=== PATIENT | female | born 1940 | race Caucasian/White ===

== ENCOUNTER 2020-03-20 15:35 | Inpatient (IN) ==
[2020-03-20] MEDS ORDERED: IOPAMIDOL 100 ML BOTTLE IV ONE (15:36)
[2020-03-20] MEDS ORDERED: ALTEPLASE 100 MG/100 ML VIAL IV ONE (15:48)
--- NOTE | 2020-03-20 15:50 | Emergency Department Note ---
Neuro HPI General Chief Complaint: Stroke Symptoms Stated Complaint: neuro symptoms, r weaknes Time Seen by Provider: 03/20/20 15:44 Mode of arrival: ambulatory Limitations: physical limitation History of Present Illness HPI Narrative: Narrative: Initial information obtained from EMS with patient reporting to them right-sided weakness last night but it went away. She went to bed fine and awoke this morning fine but around a little bit before 3 PM noted some weakness to her right arm and skilled nursing facility counselor and to her right leg. She had troubles dialing 911 so called her sister who called 911 for her. Patient lives alone in a private apartment. She was able to stand with assistance but was found sitting by EMS. She usually is able to stand by herself. She was unable to walk very far without significant amount of assistance and again it seemed to be that she was weak in her right lower extremity. And this is abnormal for her. Her speech seemed to be slow as if she was having difficulty formulating her words which is also abnormal for her. They felt that they detected some mild decrease in her skilled nursing facility counselor strength but no arm drift. Blood sugar was 89. Related Data Home Medications Medication Instructions Recorded Confirmed cetirizine 10 mg capsule 10 mg PO QDAY 09/18/16 03/20/20 fexofenadine 180 mg tablet 180 mg PO HS 09/18/16 03/20/20 calcium carbonate 600 mg calcium 600 mg PO HS 01/07/19 03/20/20 (1,500 mg) tablet cholecalciferol (vitamin D3) 25 2,000 unit PO QDAY 01/07/19 03/20/20 mcg (1,000 unit) capsule cpap machine #1 ea 01/07/19 11/21/19 diphenhydramine HCl 25 mg capsule 50 mg PO QHS PRN 01/07/19 03/20/20 tramadol 50 mg tablet 50 mg PO Q4H PRN tab 07/15/19 03/20/20 vitamin B complex 1 tab PO .unknown tab 07/15/19 03/20/20 naproxen 500 mg tablet 500 mg PO BID 10/20/19 03/20/20 doxylamine succinate 25 mg tablet 25 mg PO QHS PRN 11/21/19 03/20/20 melatonin 10 mg tablet 10 mg PO QHS tab 11/21/19 03/20/20 aspirin 81 mg PO QDAY 03/20/20 03/20/20 fluoxetine 20 mg PO QDAY 03/20/20 03/20/20 Previous Rx's Medication Instructions Recorded losartan 100 mg tablet 50 mg PO QDAY #90 tab 12/25/18 pantoprazole 40 mg tablet,delayed 40 mg PO QDAY #90 tab 03/09/20 release spironolactone 25 mg tablet 25 mg PO QDAY #90 tab 03/09/20 Allergies Allergy/AdvReac Type Severity Reaction Status Date / Time adhesive tape Allergy Mild Agitated Verified 11/21/19 09:16 mold Allergy Unknown UNKNOWN Verified 11/21/19 09:16 hydrocodone AdvReac Severe feels like Verified 11/21/19 09:16 things crawl on her latex AdvReac Intermediate rash Verified 11/21/19 09:16 Codene Allergy Unknown "felt like Uncoded 11/21/19 09:16 things where crawling on her" HAY FEVER Allergy Unknown UNKNOWN Uncoded 11/21/19 09:16 pain medication AdvReac Intermediate nerve Uncoded 11/21/19 09:16 ending exposed per patient and "creepy crawlies." Review of Systems ROS ROS Narrative: Narrative: Patient denied recent fevers chills sweats chest pain shortness of breath nausea vomiting diarrhea constipation dysuria. She did feel some lightheaded and dizzy. No specific headache. [facility] Narrative Patient History Narrative: Narrative: Medical/Surgical/Family History All Active Problems (Updated 03/20/20 @ 22:07 by Dar Allen DO) Acute CVA (cerebrovascular accident) (Acute) Hemiplegia affecting right dominant side (Acute) Difficulty with speech (Acute) Received intravenous tissue plasminogen activator (tPA) in emergency department (Acute) Hot flashes (Acute) History of surgery (Chronic) Radiculopathy, lumbar region (Chronic) Radiculopathy, lumbosacral region (Chronic) Depression (Chronic) Tobacco use (Chronic) Anxiety disorder (Chronic) Hypertension (Chronic) Hypothyroidism, unspecified (Chronic) History of breast cancer (Chronic) Chronic pain (Chronic) Low back pain (Chronic) Spondylosis without myelopathy or radiculopathy, 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) GERD (gastroesophageal reflux disease) (Chronic) Otalgia, right ear (Acute) Urinary tract infection (Acute) Insomnia (Chronic) Hypokalemia (Acute) Sleep apnea (Chronic) Chronic sinusitis (Chronic) Peptic ulcer disease (Chronic) Kidney stones (Chronic) Essential hypertension (Chronic) Bronchitis (Chronic) Malignant neoplasm of breast (Chronic) Arthritis (Chronic) Medical History (Updated 03/20/20 @ 22:07 by Dar Allen DO) Anxiety disorder (Chronic) Arthritis (Chronic) Bronchitis (Chronic) Chronic pain (Chronic) Chronic SI joint pain (Chronic) Chronic sinusitis (Chronic) Depression (Chronic) Essential hypertension (Chronic) GERD (gastroesophageal reflux disease) (Chronic) History of breast cancer (Chronic) History of radiation therapy (Resolved) 2010 History of tobacco use (Resolved) Hypertension (Chronic) Hypertensive urgency (Resolved) Hypokalemia (Acute) Hypothyroidism, unspecified (Chronic) Insomnia (Chronic) Kidney stones (Chronic) 2007 Low back pain (Chronic) Malignant neoplasm of breast (Chronic) 2010 Medicare annual wellness visit, initial (Inactive) Non-cardiac chest pain (Resolved) Peptic ulcer disease (Chronic) 1964 Pleuritic chest pain (Resolved) Radiculopathy, lumbar region (Chronic) Radiculopathy, lumbosacral region (Chronic) Sleep apnea (Chronic) 2006 Spondylosis without myelopathy or radiculopathy, lumbar region (Chronic) Tobacco use (Chronic) Urolithiasis (Inactive) Surgical History (Updated 10/20/19 @ 15:02 by Katy Paige) H/O colonoscopy (Resolved) 06/18/2019 - Dr. Rutledge H/O dilation and curettage (Resolved) H/O excision of mass (Resolved) Lump removed H/O knee surgery (Resolved 06/26/11) H/O nasal septoplasty (Resolved 06/11/13) H/O shoulder surgery (Resolved) Left History of surgery (Acute) SI Joint Injection, bilat w/o sed 06/19/19 RFTC Bilat L3-S1 w/sed 04/21/19 MBB #2 Bilat L3-S1 w/o sed 03/13/19 MBB #1 Bilat L2-S1 w/sed 02/17/19 History of surgery (Chronic) TF ELDA #3 Lt. L3-4, L4-5 w/sed 07/17/2019 Discogram L3-4, L4-5 w/sed 06/25/2019 TF ELDA #2 Lt L4-5, L5-S1 w/sed 04/21/19 LESI #1 Lt. L4-5 w/sed 03/31/2019 Hx of tonsillectomy (Resolved) 05/1949 Status post right breast lumpectomy (Resolved 10/11/10) Status post wrist surgery (Resolved) Left Social History Smoking Status: Former smoker Alcohol Intake Frequency: does not drink Substance Use: does not use Exam Narrative Narrative: Narrative: General Limitations: physical limitation General appearance: Present alert, in no apparent distress and nontoxic Head Head: Present atraumatic and normocephalic Eye Eye: Present normal appearance, PERRL and EOMI; Absent scleral icterus and conjunctival injection ENT ENT: Present normal oropharynx, mucous membranes moist and other (Muscles of facial expression symmetric including with smile and with eye closure.) Neck Neck: Present trachea midline; Absent tenderness and lymphadenopathy Chest Chest: Present symmetric chest wall rise Respiratory Respiratory: Present normal lung sounds bilaterally; Absent respiratory distress, wheezes, stridor, accessory muscle use and prolonged expiratory phase Cardiovascular Cardiovascular: Present regular rate and normal rhythm; Absent systolic murmur and diastolic murmur Adbominal Abdominal: Present soft; Absent distention, tenderness, guarding, rebound, rigidity, organomegaly and mass Extremities Extremities: Absent pedal edema, pretibial edema and calf tenderness Neurological Neurological: Present alert and oriented X3 Expanded Neurological Patient oriented to: Present person, place and time Speech: Present other (Mild slowness in forming some of her words sounding a little bit on the slurred type. Content was normal and intelligent.) CRANIAL NERVES: EOM function (II, III, IV, ): Normal, facial sensation (V): Normal, facial palsy (VII): Normal and tongue deviation (XII): Normal CEREBELLAR FUNCTION: finger to nose: Abnormal Right (Mildly slowed and ataxic of the right upper extremity.) and heel to strauss: Abnormal Right (Mild to moderately slowed and required more attention to make it happen compared to the left.) Motor strength - LUE: 4/5 Motor strength - RUE: 3/5 (Difficult to detect truly if it was abnormal but movements were abnormal.) Motor strength - LLE: 4/5 Motor strength - RLE: 3/5 (Only very subtle difference from the right with hip flexion and extension.) SENSORY EXAM UPPER EXTREMITY: Normal: light touch and pin prick SENSORY EXAM LOWER EXTREMITY: Normal: light touch Coma Scale Eye Opening: Spontaneous Coma Scale Motor Response: Obeys Commands Coma Scale Verbal Response: Oriented Coma Scale Total: 15 Psychiatric Psychiatric: Present normal affect, normal mood and pleasant; Absent agitated, anxious and serious Skin Skin: Present warm (WNL) and dry; Absent cyanosis and pallor Course Vital Signs Vital signs: Vital Signs Temperature 97.1 F 03/20/20 15:35 Pulse Rate 88 03/20/20 15:35 Respiratory Rate 16 03/20/20 15:35 Blood Pressure 183/106 03/20/20 15:35 Pulse Oximetry (%) 98 03/20/20 15:35 Temperature 97.3 F 03/20/20 20:12 Pulse Rate 66 03/20/20 21:31 Respiratory Rate 19 03/20/20 21:31 Blood Pressure 183/107 03/20/20 21:31 Pulse Oximetry (%) 97 03/20/20 21:31 MDM MDM Narrative Medical decision making narrative: 3:35 PM - interviewed and examined but initially patient was taken directly back to CT scan while I spoke with the EMS to collect the history. Later patient confirmed much of this history. No previous history of stroke or heart attack/heart disease. Does have a prior history of breast cancer. She has not been on anticoagulants except for a low- dose aspirin daily. No recent surgeries. No bleeding problems or concerns. 3:46 PM - I spoke with Dr. Rodriguez, telestroke neurologist, who upon hearing patient's presentation symptoms asked to be connected telestroke video monitor which he did at 3:54 PM. He reviewed with the patient her CT scan that was negative for bleeding. Her INR was 1.0. Spoke of her bleeding risk with the alteplase/TPA and rare allergies but in the end recommended going forward with this. Her blood pressures were 187 and 199 systolic. He recommended going ahead with nicardipine drip this is 3:57 PM) with a goal to get her blood pressures under 180/105 and once that is achieved to go ahead with the bolus injection and then obtained a CT angiogram and then after this to continue with the infusion. Goal for the blood pressure 140-180. 4:15 PM - spoke with patient's son, Jorge and updated him. (Patient gave permission). 4:55 PM approximately - patient better if not resolved. Back from CT angiogram quite a bit better. Dr. Rodriguez called back to find out how she was doing and was agreeable with management and. CT angiogram of the head and neck: 1. Mild calcified atherosclerotic plaque in the aortic arch. Minimal calcified plaque in the proximal right internal carotid artery 2. No stenosis. No ulcerative plaque 3. No detectable intracranial branch occlusion. Negative CTA 4. Multilevel degenerative disc disease in the cervical spine 5:19 PM - patient's NIH score went from the 7 to 0. Her alteplase drip was completed. CODE STATUS was that she does not want resuscitation or intubation. 5:23 PM - White count normal. Low-grade anemia at 11.9 on hemoglobin but hematocrit normal at 37.9. Electrolytes unremarkable as are liver function test. 6:32 PM - patient indicates that she does not want to leave this facility even if there were specialist to give her better care elsewhere. She does not want resuscitation or intubation. Because of a stroke with reversal, standard of care is 24-hour observation with additional stroke work-up with MRI of the brain, echocardiogram, and monitoring; I will speak with the hospitalist regarding this. I next spoke with hospitalist, Dr. Bart Burgos, who agreeable to admission if the stroke neurologist felt that this was appropriate. 7:29 PM - I spoke with Dr. Murillo, telestroke neurologist, who that patient must have monitoring protocols clued neurochecks every 15 minutes orders and then every 30 minutes and then every hour with a goal of blood pressure also less than 180/105 change in status in an acute urgent CT scan of the head. An MRI around 24 hours would be recommended, echocardiogram and monitoring. I discussed the circumstances with patient. She does not want to leave this facility even if there were advantages, or disadvantages of not having specialist etc. locally even at risk of life or limb. She is willing to stay however. I again spoke with Dr. Burgos, hospitalist, who is agreeable to accept care of this patient. I reviewed Dr. Murillo's recommendations. Lab Data Result diagrams: 03/20/20 15:58 03/20/20 15:57 Labs: Lab Results 03/20/20 03/20/20 03/20/20 Range/Units 15:57 15:58 15:58 WBC 5.7 (4.5-11.0) K/mcL RBC 4.16 (4.00-5.20) M/mcL Hgb 11.9 L (12.0-15.0) g/dL Hct 37.9 (36.0-48.0) % MCV 91.1 (80.0-100.0) fL MCH 28.6 (26.0-34.0) pg MCHC 31.4 (31.0-36.0) g/dL RDW 14.6 H (11.5-14.5) % Plt Count 266 (140-440) K/mcL MPV 10.7 H (7.4-10.4) fL Neut % (Auto) 63.3 (38.0-78.0) % Lymph % (Auto) 23.6 (15.0-49.0) % [place] % (Auto) 8.3 (1.0-12.0) % Eos % (Auto) 3.9 (0.0-7.0) % Baso % (Auto) 0.9 (0.0-2.0) % Lymph # (Auto) 1.34 L (1.50-4.80) K/mcL [place] # (Auto) 0.47 (0.10-0.90) K/mcL Eos # (Auto) 0.22 (0.00-0.70) K/mcL Baso # (Auto) 0.05 (0.00-0.20) K/mcL Absolute Neutrophils 3.61 (1.80-8.00) K/mcL POC PT 11.6 L (11.9-14.5) sec POC INR 1.0 (0.8-1.2) Sodium 137 (133-145) mmol/L Potassium 3.9 (3.3-5.1) mmol/L Chloride 98 (96-108) mmol/L Carbon Dioxide 24 (22-30) mmol/L Anion Gap 15.0 (8.0-16.0) BUN 12 (8-23) mg/dL Creatinine 0.9 (0.6-1.1) mg/dL POC Creatinine 0.8 (0.6-1.2) mg/dL GFR Calculation 61 Glucose 94 (70-105) mg/dL Calcium 9.0 (8.6-10.4) mg/dL Total Bilirubin 0.2 (0.1-1.0) mg/dL AST 16 (<32) U/L ALT 10 (<40) U/L Alkaline Phosphatase 68 (39-117) U/L Troponin T (<0.03) ng/mL Total Protein 6.9 (5.9-8.4) gm/dL Albumin 4.2 (3.2-5.2) gm/dL Globulin 2.7 (2.2-3.7) gm/dL Albumin/Globulin Ratio 1.6 (1.0-2.3) Urine Color Urine Appearance (Clear) Urine pH (5.0-9.0) Ur Specific [place] (1.000-1.035) Urine Protein (Negative) mg/dL Urine Glucose (UA) (Negative) mg/dL Urine Ketones (Negative) mg/dL Urine Occult Blood (Negative) mg/dL Urine Nitrate (Negative) Urine Bilirubin (Negative) mg/dL Urine Urobilinogen mg/dL Ur Leukocyte Esterase (Negative) /ug Urine RBC (0-1) /hpf Urine WBC (0-4) /hpf Ur Squamous Epith Cells (0-4) /hpf Urine Bacteria (0) /hpf Urine Mucus (None) /hpf Ur Culture Indicated? SARS-CoV-2 (PCR) (Negative) 03/20/20 03/20/20 03/20/20 Range/Units 15:58 17:38 18:34 WBC (4.5-11.0) K/mcL RBC (4.00-5.20) M/mcL Hgb (12.0-15.0) g/dL Hct (36.0-48.0) % MCV (80.0-100.0) fL MCH (26.0-34.0) pg MCHC (31.0-36.0) g/dL RDW (11.5-14.5) % Plt Count (140-440) K/mcL MPV (7.4-10.4) fL Neut % (Auto) (38.0-78.0) % Lymph % (Auto) (15.0-49.0) % [place] % (Auto) (1.0-12.0) % Eos % (Auto) (0.0-7.0) % Baso % (Auto) (0.0-2.0) % Lymph # (Auto) (1.50-4.80) K/mcL [place] # (Auto) (0.10-0.90) K/mcL Eos # (Auto) (0.00-0.70) K/mcL Baso # (Auto) (0.00-0.20) K/mcL Absolute Neutrophils (1.80-8.00) K/mcL POC PT (11.9-14.5) sec POC INR (0.8-1.2) Sodium (133-145) mmol/L Potassium (3.3-5.1) mmol/L Chloride (96-108) mmol/L Carbon Dioxide (22-30) mmol/L Anion Gap (8.0-16.0) BUN (8-23) mg/dL Creatinine (0.6-1.1) mg/dL POC Creatinine (0.6-1.2) mg/dL GFR Calculation Glucose (70-105) mg/dL Calcium (8.6-10.4) mg/dL Total Bilirubin (0.1-1.0) mg/dL AST (<32) U/L ALT (<40) U/L Alkaline Phosphatase (39-117) U/L Troponin T < 0.01 (<0.03) ng/mL Total Protein (5.9-8.4) gm/dL Albumin (3.2-5.2) gm/dL Globulin (2.2-3.7) gm/dL Albumin/Globulin Ratio (1.0-2.3) Urine Color Yellow Urine Appearance Clear (Clear) Urine pH 6.0 (5.0-9.0) Ur Specific [place] 1.013 (1.000-1.035) Urine Protein Negative (Negative) mg/dL Urine Glucose (UA) Negative (Negative) mg/dL Urine Ketones Negative (Negative) mg/dL Urine Occult Blood 0.03 (Negative) mg/dL Urine Nitrate Negative (Negative) Urine Bilirubin Negative (Negative) mg/dL Urine Urobilinogen Negative mg/dL Ur Leukocyte Esterase 25 A (Negative) /ug Urine RBC 2 H (0-1) /hpf Urine WBC 11 H (0-4) /hpf Ur Squamous Epith Cells < 1 (0-4) /hpf Urine Bacteria None (0) /hpf Urine Mucus Few A (None) /hpf Ur Culture Indicated? yes SARS-CoV-2 (PCR) Negative (Negative) Discharge Plan Patient/Caregiver Discharge Instructions Pt seen by HORTICULTURE SUPERVISOR/PA only: No Clinical Impression: Acute CVA (cerebrovascular accident), Hemiplegia affecting right dominant side, Difficulty with speech, Received intravenous tissue plasminogen activator (tPA) in emergency department Patient Disposition: Xfer As Inpt ([facility]) Condition: Fair Follow up with: Katy Baird PA-C [Primary Care Provider] - Prescriptions: No Action spironolactone 25 mg tablet 25 mg PO QDAY Qty: 90 RF: 0 pantoprazole 40 mg tablet,delayed release (DR/EC) 40 mg PO QDAY Qty: 90 RF: 0 tramadol 50 mg tablet 50 mg PO Q4H PRN (Reason: Back Pain) RF: 0 vitamin B complex [B Complex-Vitamin B12] Tablet 1 tab PO .unknown RF: 0 fexofenadine [Lisha Allergy] 180 mg tablet 180 mg PO HS RF: 0 cetirizine [Zyrtec] 10 mg capsule 10 mg PO QDAY RF: 0 losartan 100 mg tablet 50 mg PO QDAY Qty: 90 RF: 3 naproxen 500 mg tablet 500 mg PO BID RF: 0 melatonin 10 mg tablet 10 mg PO QHS RF: 0 Unisom (doxylamine) 25 mg tablet 25 mg PO QHS PRN (Reason: Sleep) RF: 0 cholecalciferol (vitamin D3) 1,000 unit capsule 2,000 unit PO QDAY RF: 0 calcium carbonate [Calcium 600] 600 mg calcium (1,500 mg) tablet 600 mg PO HS RF: 0 diphenhydramine HCl [Benadryl] 25 mg capsule 50 mg PO QHS PRN (Reason: Sleep) RF: 0 (DME) cpap machine Qty: 1 RF: 0 fluoxetine 20 mg capsule 20 mg PO QDAY RF: 0 aspirin 81 mg Tablet,Chewable 81 mg PO QDAY RF: 0
--- NOTE | 2020-03-20 15:51 | Cat Scan Report ---
INDICATION: Neuro Deficit/acute stroke COMPARISON: Previous MRI scan dated 06/18/2015 TECHNIQUE: Axial noncontrast-enhanced images through the brain. Sagittally and coronally reformatted images. FINDINGS: Cerebral hemispheres:Negative. No intra-axial abnormality. No intra-axial hematoma. No localized mass effect. Brain volume is within normal limits. No hydrocephalus Brainstem and cerebellum:No intra-axial abnormality Extra-axial:No acute hemorrhage. No subdural or epidural hematoma. No subarachnoid hemorrhage. Basilar cisterns are normal Calvarial:No calvarial fracture. No lytic lesion Temporal bones are negative. No destructive lesions Soft tissue, orbits, sinuses:Orbits and visualized facial soft tissues and paranasal sinuses are negative IMPRESSION: Negative noncontrast enhanced brain CT scan The exam was performed using radiation dose optimization techniques including, but not limited to, automated exposure control, adjustment of the mA and/or kV according to patient size and use of iterative reconstruction technique. Interpreted and Authenticated by: Shankar Long 03/20/20
[2020-03-20] MEDS ORDERED: niCARdipine 25 MG in 0.9 % SODIUM CHLORIDE 240 ML IV SCH (16:00)
[2020-03-20 16:22] LABS: POC Creatinine 0.8 mg/dL (0.6-1.2)
[2020-03-20 16:47] LABS: Basophils # (Auto) 0.05 K/mcL (0.00-0.20); Basophils % (Auto) 0.9 % (0.0-2.0); Eosinophils # (Auto) 0.22 K/mcL (0.00-0.70); Eosinophils % (Auto) 3.9 % (0.0-7.0); Hematocrit 37.9 % (36.0-48.0); Hemoglobin 11.9 g/dL (12.0-15.0); Lymphocytes # (Auto) 1.34 K/mcL (1.50-4.80); Lymphocytes % (Auto) 23.6 % (15.0-49.0); Mean Cell Volume 91.1 fL (80.0-100.0); Mean Corpuscular HGB Conc 31.4 g/dL (31.0-36.0); Mean Platelet Volume 10.7 fL (7.4-10.4); Monocytes # (Auto) 0.47 K/mcL (0.10-0.90); Monocytes % (Auto) 8.3 % (1.0-12.0); Neutrophils % (Auto) 63.3 % (38.0-78.0); Platelet Count 266 K/mcL (140-440); RBC 4.16 M/mcL (4.00-5.20); Red Cell Distribution Width 14.6 % (11.5-14.5); WBC 5.7 K/mcL (4.5-11.0)
[2020-03-20 16:55] LABS: ALT/SGPT 10 U/L (<40); AST/SGOT 16 U/L (<32); Albumin 4.2 gm/dL (3.2-5.2); Albumin/Globulin Ratio 1.6 (1.0-2.3); Alkaline Phosphatase 68 U/L (39-117); Bilirubin,Total 0.2 mg/dL (0.1-1.0); Blood Urea Nitrogen 12 mg/dL (8-23); Carbon Dioxide 24 mmol/L (22-30); Chloride 98 mmol/L (96-108); Globulin 2.7 gm/dL (2.2-3.7); Glomerular Filtration Rate 61; Glucose 94 mg/dL (70-105)
--- NOTE | 2020-03-20 16:58 | Cat Scan Report ---
INDICATION: stroke symptoms COMPARISON: Brain CT scan dated 03/20/2020 TECHNIQUE: Axial images were obtained through the upper chest, neck, and head during arterial phase. MIP and CPR reformatted images. 80ml Isovue 370 injected intravenously. FINDINGS: AORTIC ARCH:Calcified atherosclerotic plaque. Origins of the left subclavian artery, left vertebral artery, left common carotid artery, innominate artery, right common carotid artery, right subclavian artery, right vertebral artery are negative. No origin stenosis. CAROTID ARTERIES:Right: Right common carotid artery is negative. No stenosis or occlusion. Minimal calcified plaque at the origin of the right internal carotid artery. No significant stenosis or evidence for ulceration. Right internal carotid artery is otherwise negative. No stenosis or occlusion. No fibromuscular dysplasia or dissection. Left: Left common carotid artery is negative. No stenosis or occlusion No calcified or noncalcified plaque at the origin of left internal carotid artery. No significant stenosis. No evidence for ulceration. Left internal carotid artery is otherwise negative. There is no stenosis or occlusion. No dissection or evidence for fibromuscular dysplasia VERTEBRAL ARTERIES:Vertebral arteries are patent without stenosis or occlusion [place]:[Cavernous and supraclinoid internal carotid arteries are negative. No significant stenosis or occlusion. M1 segments of the middle cerebral arteries and A1 segments of the anterior cerebral arteries are negative. Intracranial vertebral arteries and basilar artery are negative. Posterior cerebral arteries and superior cerebellar arteries are negative] INTRACRANIAL CIRCULATION:No intracranial branch occlusion. No arteriovenous malformation or aneurysm No dural sinus occlusion UPPER CHEST:No pulmonary parenchymal mass or focal infiltrate. Superior mediastinum is negative NECK:No solid or cystic soft tissue mass. No pathologic lymphadenopathy.. Multilevel degenerative disc disease. Severe degenerative disc disease at C4-C5, C5-C6 and C6-C7, C7-T1. No fracture. BRAIN:No acute intracranial hemorrhage. No focal attenuation abnormalities or pathologic contrast enhancement. IMPRESSION: 1. Mild calcified atherosclerotic plaque in the aortic arch. Minimal calcified plaque in the proximal right internal carotid artery 2. No stenosis. No ulcerative plaque 3. No detectable intracranial branch occlusion. Negative CTA 4. Multilevel degenerative disc disease in the cervical spine The exam was performed using radiation dose optimization techniques including, but not limited to, automated exposure control, adjustment of the mA and/or kV according to patient size and use of iterative reconstruction technique. Interpreted and Authenticated by: Shankar Long 03/20/20
[2020-03-20 19:00] LABS: Appearance,Urine CLEAR (Clear); Bilirubin,Urine Negative (Negative); Color,Urine YELLOW; Culture Indicated,Urine yes; Glucose,Urine (UA) Negative (Negative); Ketones,Urine Negative (Negative); Leukocyte Esterase,Urine 25 /ug (Negative); Mucus,Urine FEW /hpf; Nitrate,Urine Negative (Negative); Protein,Urine Negative (Negative); Specific Gravity,Urine 1.013 (1.000-1.035); Urine Blood 0.03 mg/dL (Negative); Urine RBC 2 /hpf (0-1); Urine Squamous Epithelial Cell < 1 /hpf (0-4); Urine WBC 11 /hpf (0-4); Urobilinogen,Urine Negative
[2020-03-20 21:05] LABS: POC Pro Time 11.6 sec (11.9-14.5)
[2020-03-20] MEDS ORDERED: LABETALOL 5 MG/ML ML IV PRN ×2 (21:45→22:25)
[2020-03-20] MEDS ORDERED: 0.9 % SODIUM CHLORIDE 10 ML SYRINGE IV SCH (22:00)
--- NOTE | 2020-03-20 22:03 | Internal Med History&Physical ---
HPI History of Present Illness Patient information: Note initiated : 03/20/20 at 9:54 pm Service Date, if different from initiated Date: [] Patient: Piedad Sánchez 80 y/o F admitted on for neuro symptoms, lori dumont. Chief Complaint: [Right sided weakness] Chief complaint: right sided weakness History of present illness: Ms. Sánchez is a 80 year old female with a history of hypertension, SOSA, GERD, hypothyroid, depression who developed right sided weakness and difficulty talking at about 3:00 PM today. The patient was taken to the ED by EMS where she had a stroke work up with CT head followed by CTA head and neck. There was no bleed on the CT head, the CTA head and neck did not show any large vessel occlusion or significant extracranial stenosis. The patient was given tPA for ischemic stroke and a tele stroke consult was placed. The patient's rapidly recovered to her baseline with complete resolution of right hemiparesis and dysarthria. The ED provider communicated with Dr. Murillo who provided telemedicine neuro stroke organizational consultant services. Since the patient had recovered to her baseline, Dr. Murillo recommending admitting to this hospital for post tPA management and completion of the ischemic stroke workup. ROS positive for recent palpitations, chronic back and shoulder pain, resolved right hemiparesis and speech difficulties, otherwise ROS was negative. Constitutional Constitutional: Absent chills, fever(s) and headache(s) Cardiovascular Cardiovascular: Present palpatations; Absent dyspnea Respiratory Respiratory: Absent cough and dyspnea Gastrointestinal Gastrointestinal: Absent abdominal pain and nausea Genitourinary Genitourinary: Absent difficulty voiding and dysuria Musculoskeletal Musculoskeletal: Present neck pain Neurological Neurological: Present as per HPI Psychiatric Psychiatric: Present as per HPI PFSH PFSH All Active Problems (Updated 03/20/20 @ 22:07 by Dar Allen DO) Acute CVA (cerebrovascular accident) (Acute) Hemiplegia affecting right dominant side (Acute) Difficulty with speech (Acute) Received intravenous tissue plasminogen activator (tPA) in emergency department (Acute) Hot flashes (Acute) History of surgery (Chronic) Radiculopathy, lumbar region (Chronic) Radiculopathy, lumbosacral region (Chronic) Depression (Chronic) Tobacco use (Chronic) Anxiety disorder (Chronic) Hypertension (Chronic) Hypothyroidism, unspecified (Chronic) History of breast cancer (Chronic) Chronic pain (Chronic) Low back pain (Chronic) Spondylosis without myelopathy or radiculopathy, 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) GERD (gastroesophageal reflux disease) (Chronic) Otalgia, right ear (Acute) Urinary tract infection (Acute) Insomnia (Chronic) Hypokalemia (Acute) Sleep apnea (Chronic) Chronic sinusitis (Chronic) Peptic ulcer disease (Chronic) Kidney stones (Chronic) Essential hypertension (Chronic) Bronchitis (Chronic) Malignant neoplasm of breast (Chronic) Arthritis (Chronic) Medical History (Updated 03/20/20 @ 22:07 by Dar Allen DO) Anxiety disorder (Chronic) Arthritis (Chronic) Bronchitis (Chronic) Chronic pain (Chronic) Chronic SI joint pain (Chronic) Chronic sinusitis (Chronic) Depression (Chronic) Essential hypertension (Chronic) GERD (gastroesophageal reflux disease) (Chronic) History of breast cancer (Chronic) History of radiation therapy (Resolved) 2010 History of tobacco use (Resolved) Hypertension (Chronic) Hypertensive urgency (Resolved) Hypokalemia (Acute) Hypothyroidism, unspecified (Chronic) Insomnia (Chronic) Kidney stones (Chronic) 2007 Low back pain (Chronic) Malignant neoplasm of breast (Chronic) 2010 Medicare annual wellness visit, initial (Inactive) Non-cardiac chest pain (Resolved) Peptic ulcer disease (Chronic) 1964 Pleuritic chest pain (Resolved) Radiculopathy, lumbar region (Chronic) Radiculopathy, lumbosacral region (Chronic) Sleep apnea (Chronic) 2006 Spondylosis without myelopathy or radiculopathy, lumbar region (Chronic) Tobacco use (Chronic) Urolithiasis (Inactive) Surgical History (Updated 10/20/19 @ 15:02 by Katy Paige) H/O colonoscopy (Resolved) 06/18/2019 - Dr. Rutledge H/O dilation and curettage (Resolved) H/O excision of mass (Resolved) Lump removed H/O knee surgery (Resolved 06/26/11) H/O nasal septoplasty (Resolved 06/11/13) H/O shoulder surgery (Resolved) Left History of surgery (Acute) SI Joint Injection, bilat w/o sed 06/19/19 RFTC Bilat L3-S1 w/sed 04/21/19 MBB #2 Bilat L3-S1 w/o sed 03/13/19 MBB #1 Bilat L2-S1 w/sed 02/17/19 History of surgery (Chronic) TF ELDA #3 Lt. L3-4, L4-5 w/sed 07/17/2019 Discogram L3-4, L4-5 w/sed 06/25/2019 TF ELDA #2 Lt L4-5, L5-S1 w/sed 04/21/19 LESI #1 Lt. L4-5 w/sed 03/31/2019 Hx of tonsillectomy (Resolved) 05/1949 Status post right breast lumpectomy (Resolved 10/11/10) Status post wrist surgery (Resolved) Left Family History Sister Malignant neoplasm of breast Malignant neoplasm of colon Malignant neoplasm of uterus Mother Arthritis Unknown Essential hypertension Social History (Updated 01/07/19 @ 14:32 by Mj Onofre MD) marital status: smoking status: Former smoker quit date: 03/09/09 alcohol intake frequency: does not drink substance use type: does not use MEDS/ALLERGIES Home Medications and Allergies Home Medications Medication Instructions Recorded Confirmed Type cetirizine 10 mg capsule 10 mg PO QDAY 09/18/16 03/20/20 History fexofenadine 180 mg tablet 180 mg PO HS 09/18/16 03/20/20 History losartan 100 mg tablet 50 mg PO QDAY #90 tab 12/25/18 03/20/20 Rx calcium carbonate 600 mg calcium 600 mg PO HS 01/07/19 03/20/20 History (1,500 mg) tablet cholecalciferol (vitamin D3) 25 2,000 unit PO QDAY 01/07/19 03/20/20 History mcg (1,000 unit) capsule cpap machine #1 ea 01/07/19 11/21/19 History diphenhydramine HCl 25 mg capsule 50 mg PO QHS PRN 01/07/19 03/20/20 History tramadol 50 mg tablet 50 mg PO Q4H PRN tab 07/15/19 03/20/20 History vitamin B complex 1 tab PO .unknown tab 07/15/19 03/20/20 History naproxen 500 mg tablet 500 mg PO BID 10/20/19 03/20/20 History doxylamine succinate 25 mg tablet 25 mg PO QHS PRN 11/21/19 03/20/20 History melatonin 10 mg tablet 10 mg PO QHS tab 11/21/19 03/20/20 History pantoprazole 40 mg tablet,delayed 40 mg PO QDAY #90 tab 03/09/20 03/20/20 Rx release spironolactone 25 mg tablet 25 mg PO QDAY #90 tab 03/09/20 03/20/20 Rx aspirin 81 mg PO QDAY 03/20/20 03/20/20 History fluoxetine 20 mg PO QDAY 03/20/20 03/20/20 History Allergies Allergy/AdvReac Type Severity Reaction Status Date / Time adhesive tape Allergy Mild Agitated Verified 11/21/19 09:16 mold Allergy Unknown UNKNOWN Verified 11/21/19 09:16 hydrocodone AdvReac Severe feels like Verified 11/21/19 09:16 things crawl on her latex AdvReac Intermediate rash Verified 11/21/19 09:16 Codene Allergy Unknown "felt like Uncoded 11/21/19 09:16 things where crawling on her" HAY FEVER Allergy Unknown UNKNOWN Uncoded 11/21/19 09:16 pain medication AdvReac Intermediate nerve Uncoded 11/21/19 09:16 ending exposed per patient and "creepy crawlies." EXAM Constitutional Vitals: Temp Pulse Resp BP Pulse Ox 97.3 F 66 19 183/107 97 03/20/20 20:12 03/20/20 21:31 03/20/20 21:31 03/20/20 21:31 03/20/20 21:31 Head Head exam: Present atraumatic and normal inspection Eye Eye exam: Present PERRL; Absent scleral icterus ENT ENT exam: Present normal exam Neck Neck exam: Present full ROM; Absent tenderness Respiratory Respiratory exam: Present normal respiratory exam Cardiovascular Cardiovascular exam: Present normal rate and rhythm GI/Abdominal GI/Abdominal exam: Present soft; Absent distended and guarding Extremities Exam Extremities exam: Present full ROM and normal inspection Neurological Exam Neurological exam: Present alert, CN II-XII intact and oriented X3 Psychiatric Psychiatric exam: Absent agitated and anxious Skin Skin exam: Present normal color DATA Data Completed and Pending Labs: Labs from last 24 hours 03/20/20 03/20/20 03/20/20 18:34 17:38 15:58 WBC RBC Hgb Hct MCV MCH MCHC RDW Plt Count MPV Neut % (Auto) Lymph % (Auto) [place] % (Auto) Eos % (Auto) Baso % (Auto) Lymph # (Auto) [place] # (Auto) Eos # (Auto) Baso # (Auto) Absolute Neutrophils POC PT PT POC INR INR APTT Sodium Potassium Chloride Carbon Dioxide Anion Gap BUN Creatinine POC Creatinine GFR Calculation Glucose Calcium Total Bilirubin AST ALT Alkaline Phosphatase Troponin T < 0.01 Total Protein Albumin Globulin Albumin/Globulin Ratio Urine Color Yellow Urine Appearance Clear Urine pH 6.0 Ur Specific [place] 1.013 Urine Protein Negative Urine Glucose (UA) Negative Urine Ketones Negative Urine Occult Blood 0.03 Urine Nitrate Negative Urine Bilirubin Negative Urine Urobilinogen Negative Ur Leukocyte Esterase 25 A Urine RBC 2 H Urine WBC 11 H Ur Squamous Epith Cells < 1 Urine Bacteria None Urine Mucus Few A Ur Culture Indicated? yes SARS-CoV-2 (PCR) Negative 03/20/20 03/20/20 03/20/20 15:58 15:58 15:57 WBC 5.7 RBC 4.16 Hgb 11.9 L Hct 37.9 MCV 91.1 MCH 28.6 MCHC 31.4 RDW 14.6 H Plt Count 266 MPV 10.7 H Neut % (Auto) 63.3 Lymph % (Auto) 23.6 [place] % (Auto) 8.3 Eos % (Auto) 3.9 Baso % (Auto) 0.9 Lymph # (Auto) 1.34 L [place] # (Auto) 0.47 Eos # (Auto) 0.22 Baso # (Auto) 0.05 Absolute Neutrophils 3.61 POC PT 11.6 L PT Pending POC INR 1.0 INR Pending APTT Pending Sodium 137 Potassium 3.9 Chloride 98 Carbon Dioxide 24 Anion Gap 15.0 BUN 12 Creatinine 0.9 POC Creatinine 0.8 GFR Calculation 61 Glucose 94 Calcium 9.0 Total Bilirubin 0.2 AST 16 ALT 10 Alkaline Phosphatase 68 Troponin T Total Protein 6.9 Albumin 4.2 Globulin 2.7 Albumin/Globulin Ratio 1.6 Urine Color Urine Appearance Urine pH Ur Specific [place] Urine Protein Urine Glucose (UA) Urine Ketones Urine Occult Blood Urine Nitrate Urine Bilirubin Urine Urobilinogen Ur Leukocyte Esterase Urine RBC Urine WBC Ur Squamous Epith Cells Urine Bacteria Urine Mucus Ur Culture Indicated? SARS-CoV-2 (PCR) A/P Narrative A/P Narrative: 80 year old female with a history of hypertension, GERD, hypothyroidism, SOSA, chronic back and shoulder pain, remote breast cancer presented with right hemiparesis and slurred speech. ED workup was consistent with an ischemic stroke, the patient was given tPA in the ED and subsequently admitted to the ICU for close post tPA monitoring and stroke workup as advised by tele neurostroke since her symptoms have resolved and considering the patient's preference to remain in [place] instead of transfer to the nearest available stroke center. #Resolved right hemiparesis and dysarthria #Presumed ischemic stroke s/p tPA Plan is to admit for close monitoring in the ICU with frequent neuro checks, keep blood pressure less than 180/105 with prn labetalol and nicardipine drip if necessary, stat CT head for new neuro changes. Hold antiplatelets for 24-48 hrs, will likely add a statin tomorrow, monitor telemetry for afib/aflutter, additional stroke workup will include MRI brain and ECHO tomorrow, check hemoglobin A1C and lipid panel. #Essential hypertension - continue home losartan and spironolactone, may need to add an additional antihypertensive if blood pressure remains elevated. #GERD - Protonix. #Depression - Fluoxetine. #Chronic pain - hold NSAIDs for now, add prn tylenol and continue home prn tramadol. #SOSA - CPAP at bedtime. #DVT prophylaxis - SCD Time Spent With Patient Time: Total time spent is greater than 50% in coordination of care (as documented) at patient's floor/unit and/or counseling patient: 72 minutes
[2020-03-20] MEDS ORDERED: niCARdipine 25 MG in 0.9 % SODIUM CHLORIDE 240 ML IV PRN (22:25)
[2020-03-20] MEDS ORDERED: LABETALOL 5 MG/ML ML IV ONE (22:36)
[2020-03-20] MEDS: FEXOFENADINE 180 MG TABLET PO SCH (23:47)
[2020-03-21] MEDS: ACETAMINOPHEN 500 MG TABLET PO PRN ×2 (01:14→18:15)
[2020-03-21] MEDS ORDERED: ACETAMINOPHEN 500 MG TABLET PO ONE (01:22)
[2020-03-21 01:24] LABS: Hemoglobin A1C 5.6 % Hgb (4.0-6.0)
[2020-03-21] MEDS ORDERED: traMADol 50 MG TABLET PO ONE (03:13)
[2020-03-21] MEDS: 0.9 % SODIUM CHLORIDE 10 ML SYRINGE IV SCH ×3 (05:52→21:33)
[2020-03-21] MEDS ORDERED: SPIRONOLACTONE 25 MG TABLET PO SCH (09:00)
[2020-03-21] MEDS: CETIRIZINE 10 MG TABLET PO SCH (09:03)
[2020-03-21] MEDS: PANTOPRAZOLE 40 MG TABLET PO SCH (09:03)
[2020-03-21] MEDS: LOSARTAN 50 MG TABLET PO SCH (09:03)
[2020-03-21] MEDS: FLUoxetine HCL 20 MG CAPSULE PO SCH (09:03)
--- NOTE | 2020-03-21 17:55 | Internal Med Progress Note ---
SUBJECTIVE Subjective Patient information: Note initiated : 03/21/20 at 5:48 pm Service Date, if different from initiated Date: [] Patient: Piedad Sánchez 80 y/o F admitted on 03/20/20 for neuro symptoms, r julia. Chief Complaint: [ischemic stroke] History of present illness: Ms. Sánchez is a 80 year old female with a history of hypertension, SOSA, GERD, hypothyroid, depression who developed right sided weakness and difficulty talking at about 3:00 PM on 03/20/20. The patient was taken to the ED by EMS where she had a stroke work up with CT head followed by CTA head and neck. There was no bleed on the CT head, the CTA head and neck did not show any large vessel occlusion or significant extracranial stenosis. The patient was given tPA for ischemic stroke and a tele stroke consult was placed. The patient's rapidly recovered to her baseline with complete resolution of right hemiparesis and dysarthria. The ED provider communicated with Dr. Murillo who provided telemedicine neuro stroke splunk consultant services. Since the patient had recovered to her baseline, Dr. Murillo recommending admitting to this hospital for post tPA management and completion of the ischemic stroke workup. ROS positive f or recent palpitations, chronic back and shoulder pain, resolved right hemiparesis and speech difficulties, otherwise ROS was negative. 03/21-stable overnight, blood pressure at goal post < 180/105 with losartan. Plan for MRI brain tomorrow, resume spironolactone. Anticipate starting antiplatelets if MRI scan looks stable. PT and OT tomorrow. Follow up pending ECHO and telemetry. Constitutional Vitals: Vital Signs Temp Pulse Resp BP Pulse Ox 96.9 F L 92 H 21 161/100 97 03/21/20 16:02 03/21/20 17:07 03/21/20 17:07 03/21/20 17:07 03/21/20 17:07 Period Temp Pulse Resp BP Sys/Lyles Pulse Ox Last 24 Hr 96.8 F-98.1 F 61-92 10-26 138-193/79-145 93-100 Intake and Output 03/21/20 03/21/20 03/21/20 05:59 13:59 21:59 Intake Total 250 750 400 Output Total 750 Balance -500 750 400 Weight 105.596 kg Intake & Output: Intake & Output 03/21/20 03/21/20 03/21/20 05:59 13:59 21:59 Intake Total 250 750 400 Output Total 750 Balance -500 750 400 Weight 105.596 kg Intake: Oral 250 750 400 Output: Urine Catheter Amount 500 Void Amount 250 Other: Meal Lunch Dinner Percent of Meal Consumed 100% 100% Feeding Ability Independent Independent Urine Appearance Cloudy Uretheral (Craig) Clear Urine Color Bright Yellow Uretheral (Craig) Bright Yellow Urine Odor Normal Normal Stool Size Smear Smear Stool Color Brown Brown Stool Consistency Loose Loose # Voids 1 1 # Bowel Movements 1 Head Head exam: Present atraumatic and normal inspection Eye Eye exam: Present normal appearance Neck Neck exam: Present full ROM Respiratory Respiratory exam: Present normal respiratory exam Cardiovascular Cardiovascular exam: Present normal rate and rhythm GI/Abdominal GI/Abdominal exam: Present soft; Absent distended and tenderness Extremities Exam Extremities exam: Present full ROM and normal inspection Neurological Exam Neurological exam: Present CN II-XII intact and oriented X3; Absent motor sensory deficit Psychiatric Psychiatric exam: Present agitated, normal affect and normal mood Skin Skin exam: Present normal color and warm OBJ DATA Labs CBC & Chem 7: 03/20/20 15:58 03/20/20 15:57 Labs: Abnormal Lab Results 03/20/20 03/20/20 03/20/20 17:38 15:58 15:58 Hgb 11.9 L RDW 14.6 H MPV 10.7 H Lymph # (Auto) 1.34 L POC PT 11.6 L Triglycerides Cholesterol LDL Cholesterol, Calc Non-HDL Cholesterol Ur Leukocyte Esterase 25 A Urine RBC 2 H Urine WBC 11 H Urine Mucus Few A 03/20/20 15:57 Hgb RDW MPV Lymph # (Auto) POC PT Triglycerides 155 H Cholesterol 251 H LDL Cholesterol, Calc 162 H Non-HDL Cholesterol 192 H Ur Leukocyte Esterase Urine RBC Urine WBC Urine Mucus Meds: Medications Acetaminophen (Tylenol) 500 mg PO Q6HP PRN; Protocol PRN Reason: Per Pain Protocol Last Admin: 03/21/20 01:14 Dose: 500 mg Documented by: Cetirizine HCl (Zyrtec) 10 mg PO DAILY [facility] Last Admin: 03/21/20 09:03 Dose: 10 mg Documented by: Fexofenadine HCl (Lisha) 180 mg PO HS [facility] Last Admin: 12/12/20 23:47 Dose: Not Given Documented by: Fluoxetine HCl (Prozac) 20 mg PO QDAY [facility] Last Admin: 03/21/20 09:03 Dose: 20 mg Documented by: Nicardipine HCl 25 mg/ Sodium (Chloride) 250 mls @ 50 mls/hr IV DAILYP PRN; Protocol PRN Reason: Blood Pressure - High Labetalol HCl (Trandate) 10 mg IV Q10M PRN PRN Reason: Blood Pressure Last Admin: 03/20/20 22:30 Dose: 10 mg Documented by: Losartan Potassium (Cozaar) 50 mg PO DAILY [facility] Last Admin: 03/21/20 09:03 Dose: 50 mg Documented by: Pantoprazole Sodium (Protonix) 40 mg PO ACB [facility] Last Admin: 03/21/20 09:03 Dose: 40 mg Documented by: Sodium Chloride (Saline Flush) 10 ml IV Q8 [facility] Last Admin: 03/21/20 14:04 Dose: 10 ml Documented by: Tramadol HCl (Ultram) 50 mg PO Q4HP PRN; Protocol PRN Reason: Back Pain A/P Narrative A/P Narrative: Assessment: 80 year old female with a history of hypertension, GERD, hypothyroidism, SOSA, chronic back and shoulder pain, remote breast cancer presented with right hemiparesis and slurred speech. ED workup was consistent with an ischemic stroke, the patient was given tPA in the ED and subsequently admitted to the ICU for close post tPA monitoring and stroke workup as advised by tele neurostroke since her symptoms have resolved and considering the patient's preference to remain in [place] instead of transfer to the nearest available stroke center. 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 LDL-162, Hgb A1C-5.6. Will [address] a referral for neurology follow up after discharge. #Essential hypertension - continue home losartan and spironolactone, may need to add an additional antihypertensive if blood pressure remains elevated. #GERD - Protonix. #Depression - Fluoxetine. #Chronic pain - hold NSAIDs for now, prn tylenol and continue home prn tramadol. Could resume home Ibuprofen prn tomorrow. #SOSA - CPAP at bedtime. #DVT prophylaxis - SCD, no pharmacologic prophylaxis until > 48 hrs after tPA Time Spent With Patient Time: Total time spent is greater than 50% in coordination of care (as documented) at patient's floor/unit and/or counseling patient: Total time spent with greater than 50% in coordination of care (as documented) at patient's floor/unit and/or counseling patient:: 25 - 35 minutes QUALITY Stroke Onset of Symptoms Date: 03/20/20 Onset of Symptoms Time: 15:00 Symptom Onset Unknown: No VTE Deep Vein Thrombosis/Pulmonary Embolism Present on Admission: No
[2020-03-21] MEDS ORDERED: SIMVASTATIN 40 MG TABLET PO SCH (21:00)
[2020-03-21] MEDS: FEXOFENADINE 180 MG TABLET PO SCH (21:27)
[2020-03-21] MEDS: traMADol 50 MG TABLET PO PRN (21:27)
[2020-03-22] MEDS: traMADol 50 MG TABLET PO PRN (02:26)
[2020-03-22] MEDS: 0.9 % SODIUM CHLORIDE 10 ML SYRINGE IV SCH (05:49)
[2020-03-22] MEDS: LOSARTAN 50 MG TABLET PO SCH (08:11)
[2020-03-22] MEDS: PANTOPRAZOLE 40 MG TABLET PO SCH (08:11)
[2020-03-22] MEDS: FLUoxetine HCL 20 MG CAPSULE PO SCH (08:11)
[2020-03-22] MEDS: CETIRIZINE 10 MG TABLET PO SCH (08:11)
[2020-03-22] MEDS ORDERED: SPIRONOLACTONE 25 MG TABLET PO SCH (09:00)
[2020-03-22 09:26] LABS: POC Blood Urea Nitrogen 14 mg/dL (6-20); POC CO2 21 mmol/L (22-30); POC Calcium, Ionized 1.13 mmEq/L (1.16-1.32); POC Chloride 101 mEq/L (96-108); POC Creatinine 0.8 mg/dL (0.6-1.2); POC Glucose, Random 153 mg/dL (70-105); POC Hematocrit 42 % (36-48); POC Potassium 3.5 mEql/L (3.3-5.1); POC Sodium 136 mEq/L (133-145)
--- NOTE | 2020-03-22 09:32 | Cat Scan Report ---
CLINICAL INFORMATION: Code stroke COMPARISON: 03/20/2020 TECHNIQUE: 2.5 mm helical slices were obtained in the skull base to vertex. Following reconstruction, axial reformatted images were reviewed at bone and parenchymal windows. The exam was performed using radiation dose optimization techniques including, but not limited to, automated exposure control, adjustment of the mA and/or kV according to patient size and use of iterative reconstruction technique. FINDINGS: The ventricles, sulci, fissures, and cisterns are symmetrically enlarged compatible with mild age-related atrophy - no extra-axial fluid collection appreciated. Small remote lacunar infarct in the left lentiform nucleus extending to hansen radiata fibers of the deep left frontal left frontal white matter and small old cortical infarct in the right parietal lobe near vertex seen as before. On today's exam, the corticomedullary junction of the left MCA territory the the frontal parietal region appear to be indistinct and there is suggestive of cytotoxic edema in the left MCA territory. This could represent early imaging evidence of acute left MCA CVA. No hemorrhage or mass effect. IMPRESSION: Possible acute infarct in the MCA territory. No hemorrhage. Follow-up CT cerebral angiogram to be performed. Remote lacunar infarcts in the left basal ganglia and right parietal cortex as before Interpreted and Authenticated by: Shankar Palomo 03/22/20
[2020-03-22] MEDS ORDERED: IOPAMIDOL 100 ML BOTTLE IV ONE ×2 (09:35→09:41)
--- NOTE | 2020-03-22 10:03 | Cat Scan Report ---
CLINICAL INFORMATION: Acute stroke symptoms COMPARISON: CT cerebral angiogram two days prior 03/20/2020 TECHNIQUE: 80 cc of Isovue-370 were injected intravenously , and using SmartPrep to maximize cerebral arterial opacification, 0.625 mm helical slices were obtained from the skull base through the cerebral vertex. Following reconstruction , sagittal, coronal and axial reformatted images were processed and reviewed at multiple windows and levels. 3D volume rendered and MIP images were acquired at a independent workstation. The exam was performed using radiation dose optimization techniques including, but not limited to, automated exposure control, adjustment of the mA and/or kV according to patient size and use of iterative reconstruction technique. FINDINGS: The intracranial vertebral, basilar, and internal carotid arteries are unremarkable. Mild (less than 50% stenoses) are scattered throughout the the anterior, middle and posterior cerebral arterial branches. There is no evidence of thrombus or embolus. The superficial and deep cerebral veins and deep venous sinuses are patent. IMPRESSION: No evidence of thrombus or embolus within the left MCA branches nor the remainder of the cerebral arterial vasculature. Scattered mild (less than 50%) throughout the branches of the anterior middle and posterior cerebral arteries - as previously seen Interpreted and Authenticated by: Shankar Palomo 03/22/20
[2020-03-22 10:04] LABS: Basophils # (Auto) 0.03 K/mcL (0.00-0.20); Basophils % (Auto) 0.2 % (0.0-2.0); Eosinophils # (Auto) 0.09 K/mcL (0.00-0.70); Eosinophils % (Auto) 0.6 % (0.0-7.0); Hemoglobin 12.4 g/dL (12.0-15.0); Lymphocytes # (Auto) 2.13 K/mcL (1.50-4.80); Lymphocytes % (Auto) 15.2 % (15.0-49.0); Mean Cell Volume 88.6 fL (80.0-100.0); Mean Corpuscular HGB Conc 31.8 g/dL (31.0-36.0); Mean Platelet Volume 10.7 fL (7.4-10.4); Monocytes # (Auto) 0.73 K/mcL (0.10-0.90); Monocytes % (Auto) 5.2 % (1.0-12.0); Neutrophils % (Auto) 78.8 % (38.0-78.0); Platelet Count 305 K/mcL (140-440); Red Cell Distribution Width 14.6 % (11.5-14.5)
--- NOTE | 2020-03-22 10:10 | Cat Scan Report ---
CLINICAL INFORMATION: Code stroke COMPARISON: CT carotid angiogram 03/20/2020 TECHNIQUE: 80 cc of Isovue-370 were injected intravenously, and using SmartPrep to maximize arterial opacification, 0.625 mm helical slices were obtained from the thoracic aortic arch through the [place]. Following reconstruction, 2.5mm sagittal, coronal and axial reformatted images were processed and reviewed at standard and bone algorithm/window. 3-D volume rendered, CPR and MIP images were processed using a [place] work station.The exam was performed using radiation dose optimization techniques including, but not limited to, automated exposure control, adjustment of the mA and/or kV according to patient size and use of iterative reconstruction technique. FINDINGS: The thoracic aortic arch is widely patent and aortic branching is conventional. The brachiocephalic, both subclavian, both common, internal and external carotid and vertebral arteries are widely patent. This minimal atherosclerotic plaque in both carotid bifurcations previously seen. No soft tissue abnormalities. Moderate multilevel degenerative disc disease in the throughout the mid spine is unchanged. The lung apices are normal. IMPRESSION: Minimal calcific plaque in the carotid bifurcations. Exam otherwise normal Interpreted and Authenticated by: Shankar Palomo 03/22/20
[2020-03-22 10:12] LABS: ALT/SGPT 9 U/L (<40); AST/SGOT 16 U/L (<32); Albumin/Globulin Ratio 1.3 (1.0-2.3); Alkaline Phosphatase 67 U/L (39-117); Bilirubin,Total 0.4 mg/dL (0.1-1.0); Blood Urea Nitrogen 14 mg/dL (8-23); Carbon Dioxide 20 mmol/L (22-30); Chloride 98 mmol/L (96-108); Glomerular Filtration Rate 54; Glucose 150 mg/dL (70-105)
[2020-03-22] MEDS ORDERED: 0.9 % SODIUM CHLORIDE 500 ML IV ONE (10:21)
--- NOTE | 2020-03-22 11:14 | Discharge Summary ---
Discharge Provider Provider Patient information: Note initiated : 03/22/20 at 10:45 am Service Date, if different from initiated Date: [] Patient: Piedad Sánchez 80 y/o F admitted on 03/20/20 for neuro symptoms, r weaknes. Chief Complaint: [ischemic stroke] Date of admission: 03/20/20 22:00 Discharge date: 03/22/20 Primary care physician: Katy Barid PA-C Consults: 03/20/20 Consult to Physician [CONS] Stat Comment: Consulting Provider: Bart Burgos Reason For Exam: Physician to Consult Discharge Meds Discharge Medications Home Medications cetirizine 10 mg capsule 10 mg PO QDAY 09/18/16 [History Confirmed 03/21/20 Last Taken 03/20/20 09:00] fexofenadine 180 mg tablet 180 mg PO HS 09/18/16 [History Confirmed 03/21/20 Last Taken 03/19/20 21:00] calcium carbonate 600 mg calcium (1,500 mg) tablet 600 mg PO HS 01/07/19 [History Confirmed 03/21/20 Last Taken 03/19/20 21:00] cholecalciferol (vitamin D3) 25 mcg (1,000 unit) capsule 2,000 unit PO QDAY 01/07/19 [History Confirmed 03/21/20 Last Taken Unknown] cpap machine #1 ea 01/07/19 [History Confirmed 03/21/20 Last Taken Unknown] diphenhydramine HCl 25 mg capsule 50 mg PO QHS PRN 01/07/19 [History Confirmed 03/21/20 Last Taken 03/19/20 21:00] tramadol 50 mg tablet 50 mg PO Q4H PRN tab 07/15/19 [History Confirmed 03/21/20 Last Taken 12/09/19] vitamin B complex 1 tab PO .unknown tab 07/15/19 [History Confirmed 03/21/20 Last Taken Unknown] doxylamine succinate 25 mg tablet 25 mg PO QHS PRN 11/21/19 [History Confirmed 03/21/20 Last Taken 03/14/20] melatonin 10 mg tablet 10 mg PO QHS tab 11/21/19 [History Confirmed 03/21/20 Last Taken 03/19/20 21:00] pantoprazole 40 mg tablet,delayed release 40 mg PO QDAY #90 tab 03/09/20 [Rx Confirmed 03/21/20 Last Taken 03/20/20 09:00] aspirin 81 mg PO QDAY 03/20/20 [History Confirmed 03/21/20 Last Taken 03/20/20 09:00] fluoxetine 60 mg PO QDAY 03/20/20 [History Confirmed 03/21/20 Last Taken 03/20/20 09:00] ibuprofen 200 mg PO Q6H PRN 03/21/20 [History Confirmed 03/21/20 Last Taken 03/19/20 21:00] simvastatin 40 mg PO HS #31 tab 03/22/20 [Rx Last Taken Unknown] COURSE Hospital Course Hospital course: Ms. Sánchez is a 80 year old female with a history of hypertension, SOSA, GERD, hypothyroid, depression who developed right sided weakness and difficulty talking at about 3:00 PM on 03/20/20. The patient was taken to the ED by EMS where she had a stroke work up with CT head followed by CTA head and neck. There was no bleed on the CT head, the CTA head and neck did not show any large vessel occlusion or significant extracranial stenosis. The patient was given tPA for ischemic stroke and a tele stroke consult was placed. the initial NIH stroke score was 7. The [facility] with complete resolution of right hemiparesis and dysarthria with an NIH stroke score of 0. The ED provider communicated with Dr. Murillo who provided telemedicine neuro stroke erp consultant services. Since the patient had recovered to her baseline and she also did not want to transfer to a stroke center, Dr. Murillo recommending admitting to this hospital for post tPA management and completion of the ischemic stroke workup. The patient was admitted with prn labetelol and nicardipine prn to keep blood pressure less than 180/105 as required after tPA. Antiplatelets were held per protocol after tPA. Aspirin was continued with discharge orders but note that the patient has not yet received aspirin post tPA. Simvastatin was started per the patient's request instead of the recommended atorvastatin. She has had difficulty tolerating statins in the past. The patient was placed on telemetry which showed the patient to be in intermittent atrial fibrillation. Paroxysmal atrial fibrillation is a new diagnosis and the likely cause of the ischemic stroke. An ECHO was ordered, the read is still pending at that time of this writing. LDL was 162, Hgb A1C was normal. The first day was uneventful and the plan was to get an MRI brain on Sunday then proceed with starting anticoagulation 48 hours after tPA administration if neurology felt that was ok. Home losartan was resumed about 24 hrs after tPA followed by home spironolactone the next day for post tPA blood pressure control. The next morning the patient developed acute onset right sided weakness and aphasia once again, NIH stroke score was 13. A stroke code was called and a stat non-contrast CT head was ordered followed by CTA head and neck. Radiology felt there was an evolving left basal ganglia ischemic stroke present but no large vessel occlusions on the CT scan workup. Stroke neurology was available via tele consult and reviewed the CT scans as well commenting that there may be a left MCA stenosis present-moderate at most. The patient was given an IV fluid bolus, antihypertensives were discontind. The patient then recovered back to near her baseline, NIH stroke score of 0. After discussing the stroke workup and the patient's symptoms with tele stroke neurology, the decision was made to transfer the patient to [facility] in [place], [place], for comprehensive stroke care. Hospital medicine at [facility] accepted the patient and the patient was transferred by flight. The likely reason for the stroke is atrial fibrillation however the ECHO is still pending. Neurology feels there may be a left MCA stenosis present as well that may be contributing to the stroke symptoms. It is also possible the patient had an atypical seizure from the stroke injury which caused a second stroke like presentation. EEG is not available here. Pending workup includes the ECHO which has not been ready yet and an MRI brain which we were not able to get over the weekend. I will hold her antihypertensives at discharge for permissive blood pressure in the setting of ischemic stroke now 48-72 hours post tPA. The patient should be started on anticoagulation when ok with neurology. To do; Consult stroke neurology upon admission. Follow up pending ECHO report. MRI brain will need to be ordered to complete the stroke workup. New diagnosis of atrial fibrillation - start anticoagulation when ok with neurology. Permissive blood pressure until ok neurology ok to start BP mds - holding home losartan and spironolactone. Telemetry monitoring. PT/OT, Consider physiatry consult. Discharge diagnosis: Ischemic stroke Time Spent with Patient Time attestation: Total time spent providing and/or coordinating discharge services: Time spent: Greater than 30 minutes EXAM Constitutional Vitals: Temp Pulse Resp BP Pulse Ox 97.3 F 82 19 132/74 98 03/22/20 08:01 03/22/20 09:39 03/22/20 10:32 03/22/20 10:32 03/22/20 10:32 Head Head exam: Present atraumatic and normal inspection Eye Pupils: Present normal accommodation Neck Neck exam: Present full ROM and normal inspection Respiratory Respiratory exam: Present normal respiratory exam Cardiovascular Cardiovascular exam: Present normal rate and rhythm GI/Abdominal GI/Abdominal exam: Present normal bowel sounds Extremities Exam Extremities exam: Present full ROM and normal inspection Neurological Exam Neurological exam: Present alert and CN II-XII intact Psychiatric Psychiatric exam: Present anxious and normal affect Skin Skin exam: Present normal color and warm Discharge Data Data Completed and Pending Labs on day of discharge: Labs from last 24 hours 03/22/20 03/22/20 09:19 09:18 WBC 14.0 H RBC 4.40 Hgb 12.4 Hct 39.0 POC Hct 42 MCV 88.6 MCH 28.2 MCHC 31.8 RDW 14.6 H Plt Count 305 MPV 10.7 H Neut % (Auto) 78.8 H Lymph % (Auto) 15.2 [place] % (Auto) 5.2 Eos % (Auto) 0.6 Baso % (Auto) 0.2 Lymph # (Auto) 2.13 [place] # (Auto) 0.73 Eos # (Auto) 0.09 Baso # (Auto) 0.03 Absolute Neutrophils 10.99 H POC Sodium 136 Sodium 135 POC Potassium 3.5 Potassium 3.4 POC Chloride 101 Chloride 98 Carbon Dioxide 20 L POC Total CO2 21 L Anion Gap 17.0 H POC BUN 14 BUN 14 Creatinine 1.0 POC Creatinine 0.8 GFR Calculation 54 Glucose 150 H POC Glucose 153 H Calcium 9.0 POC WB Ioniz Calcium 1.13 L Total Bilirubin 0.4 AST 16 ALT 9 Alkaline Phosphatase 67 Total Protein 7.0 Albumin 4.0 Globulin 3.0 Albumin/Globulin Ratio 1.3 Discharge Plan Patient/Caregiver Discharge Instructions Prescriptions: New simvastatin 40 mg Tablet 40 mg PO HS Qty: 31 RF: 4 Continued pantoprazole 40 mg tablet,delayed release (DR/EC) 40 mg PO QDAY Qty: 90 RF: 0 tramadol 50 mg tablet 50 mg PO Q4H PRN (Reason: Back Pain) RF: 0 vitamin B complex [B Complex-Vitamin B12] Tablet 1 tab PO .unknown RF: 0 fexofenadine [Lisha Allergy] 180 mg tablet 180 mg PO HS RF: 0 cetirizine [Zyrtec] 10 mg capsule 10 mg PO QDAY RF: 0 melatonin 10 mg tablet 10 mg PO QHS RF: 0 Unisom (doxylamine) 25 mg tablet 25 mg PO QHS PRN (Reason: Sleep) RF: 0 cholecalciferol (vitamin D3) 1,000 unit capsule 2,000 unit PO QDAY RF: 0 calcium carbonate [Calcium 600] 600 mg calcium (1,500 mg) tablet 600 mg PO HS RF: 0 diphenhydramine HCl [Benadryl] 25 mg capsule 50 mg PO QHS PRN (Reason: Sleep) RF: 0 (DME) cpap machine Qty: 1 RF: 0 fluoxetine 20 mg capsule 60 mg PO QDAY RF: 0 aspirin 81 mg Tablet,Chewable 81 mg PO QDAY RF: 0 ibuprofen 200 mg Tablet 200 mg PO Q6H PRN (Reason: Pain) RF: 0 Discontinued spironolactone 25 mg tablet 25 mg PO QDAY Qty: 90 RF: 0 losartan 100 mg tablet 50 mg PO QDAY Qty: 90 RF: 3 Follow Up Plan Follow up with: Katy Baird PA-C [Primary Care Provider] - Patient Disposition: [facility] Prognosis: Fair Discharge Orders: Discharge Order (Routine); Ordered 03/22/20 Ordered By: Bart JEREZ VTE Deep Vein Thrombosis/Pulmonary Embolism Present on Admission: No
[2020-03-22 12:28] LABS: INR 1.1 (0.9-1.1); Partial Thromboplastin Time 30.2 sec (20.0-37.0); Prothrombin Time 14.7 sec (11.9-14.5)
== END 2020-03-22 11:50 | disposition short-term general hospital (02) | DRG 65 ==
LOC: ED 15:35 → ICU 22:00
PROVIDERS: ADMIT Internal Medicine; ATTEND Internal Medicine

== ENCOUNTER 2022-02-03 16:41 | Observation (INO) ==
[2022-02-03] MEDS ORDERED: IOPAMIDOL 100 ML BOTTLE IV ONE (16:42)
[2022-02-03] MEDS ORDERED: 0.9 % SODIUM CHLORIDE 500 ML IV ONE (17:04)
--- NOTE | 2022-02-03 17:12 | Emergency Department Note ---
Abdominal Pain HPI General Chief Complaint: Abdominal Pain Stated Complaint: EKG Time Seen by Provider: 02/03/22 16:50 Source: patient Mode of arrival: ambulatory Limitations: no limitations History of Present Illness HPI Narrative: Narrative: This is a 81-year-old female who presents to the emergency department complaining of epigastric pain. This is the third day of the pain. For the past 2 days it has been intermittent and not too severe, today it has been constant pain all day. She describes it as a squeezing pain that does not radiate. She is able to eat and it does not make the pain better or worse. She complains of nausea without vomiting. She has had normal bowel movements. She is currently being treated for urinary tract infection. She continues to have urinary frequency without urgency or dysuria. She does have bilateral flank pain. Her temperature has been low at home. She denies sweats or chills. Related Data Home Medications Medication Instructions Recorded Confirmed fexofenadine 180 mg tablet 180 mg PO HS 09/18/16 02/03/22 (Lisha Allergy) calcium carbonate 600 mg calcium 600 mg PO HS 01/07/19 02/03/22 (1,500 mg) tablet (Calcium) cholecalciferol (vitamin D3) 25 2,000 unit PO QDAY 01/07/19 02/03/22 mcg (1,000 unit) capsule vitamin B complex (B 1 tab PO .unknown 07/15/19 02/03/22 Complex-Vitamin B12 tablet) melatonin 10 mg tablet 10 mg PO QHS 11/21/19 02/03/22 loperamide 2 mg capsule 2 mg PO QID PRN 05/06/20 02/03/22 (Anti-Diarrheal (loperamide)) apixaban 5 mg tablet 5 mg PO BID 11/10/21 02/03/22 budesonide 4 mg capsule,delayed 3 mg PO QDAY 11/10/21 02/03/22 release nut.tx.impaired digest fxn (MCT packet PO 11/10/21 02/03/22 Pro-Ruddy oral packet) Previous Rx's Medication Instructions Recorded CPAP replacement supplies #1 ea 06/03/20 nystatin 100,000 unit/gram topical 1 applic topical BID PRN rash #30 11/02/20 cream grams alendronate 70 mg tablet 70 mg PO QWEEK #90 tabs 11/10/21 losartan 50 mg tablet 50 mg PO QDAY #90 tabs 11/10/21 pantoprazole 40 mg tablet,delayed 40 mg PO QDAY #90 tabs 11/10/21 release sertraline 50 mg tablet (Zoloft) 75 mg PO QDAY 3 months #135 tabs 11/10/21 spironolactone 25 mg tablet 25 mg PO QDAY #90 tabs 11/10/21 atorvastatin 10 mg tablet 10 mg PO QDAY #90 tabs 11/24/21 incentive spirometer #1 ea 01/10/22 tramadol 100 mg tablet 100 mg PO Q6H PRN pain #45 tabs 01/18/22 nitrofurantoin 100 mg PO BID #14 caps 02/01/22 monohydrate/macrocrystals 100 mg capsule (Macrobid) Allergies Allergy/AdvReac Type Severity Reaction Status Date / Time mold Allergy Unknown UNKNOWN Verified 02/03/22 16:46 latex AdvReac Intermediate rash Verified 02/03/22 16:46 adhesive tape AdvReac Mild Agitated Verified 02/03/22 16:46 codeine AdvReac Mild Other Verified 02/03/22 16:46 hydrocodone AdvReac Mild Other Verified 02/03/22 16:46 HAY FEVER Allergy Unknown UNKNOWN Uncoded 01/18/22 13:23 pain medication AdvReac Intermediate nerve Uncoded 01/18/22 13:23 ending exposed per patient and "creepy crawlies." Review of Systems ROS ROS Narrative: Narrative: All systems ED: reviewed and negative except as stated. [facility] Narrative Patient History Narrative: Narrative: Medical/Surgical/Family History All Active Problems (Updated 02/03/22 @ 21:46 by Phyllis Lockwood PA-C) Abdominal pain (Acute) Shortness of breath (Acute) Cough (Acute) Rib fracture (Acute) Trochanteric bursitis of both hips (Chronic) Wrist pain (Acute) Weight gain (Acute) Rash (Acute) Yeast dermatitis (Acute) Plantar fasciitis (Acute) Atrial fibrillation (Acute) Difficulty with speech (Acute) Received intravenous tissue plasminogen activator (tPA) in emergency department (Acute) Hot flashes (Acute) Radiculopathy, lumbar region (Chronic) Radiculopathy, lumbosacral region (Chronic) Depression (Chronic) Tobacco use (Chronic) Anxiety disorder (Chronic) Hypertension (Chronic) Hypothyroidism, unspecified (Chronic) History of breast cancer (Chronic) Chronic pain (Chronic) Spondylosis without myelopathy or radiculopathy, 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) GERD (gastroesophageal reflux disease) (Chronic) Otalgia, right ear (Acute) Urinary tract infection (Acute) Insomnia (Chronic) Hypokalemia (Acute) Sleep apnea (Chronic) Chronic sinusitis (Chronic) Peptic ulcer disease (Chronic) Kidney stones (Chronic) Essential hypertension (Chronic) Bronchitis (Chronic) Malignant neoplasm of breast (Chronic) Arthritis (Chronic) Medical History Anxiety disorder Arthritis Atrial fibrillation Pt is managed by cardiology Bronchitis Chronic pain Chronic SI joint pain Chronic sinusitis Depression Essential hypertension GERD (gastroesophageal reflux disease) History of breast cancer History of radiation therapy 2010 History of tobacco use Hypertension Hypertensive urgency Hypokalemia Hypothyroidism, unspecified Insomnia Kidney stones 2007 Low back pain Malignant neoplasm of breast 2011- resolved Medicare annual wellness visit, initial Non-cardiac chest pain Peptic ulcer disease 1964 Plantar fasciitis Left foot Pleuritic chest pain Radiculopathy, lumbar region Radiculopathy, lumbosacral region Sleep apnea 2006 Spondylosis without myelopathy or radiculopathy, lumbar region Tobacco use Trochanteric bursitis of both hips Urolithiasis Surgical History H/O colonoscopy 06/18/2019 - Dr. Rutledge H/O dilation and curettage H/O excision of mass Lump removed H/O knee surgery (06/26/11) H/O nasal septoplasty (06/11/13) H/O shoulder surgery Left History of surgery SI Joint Injection, bilat w/o sed 06/19/19 RFTC Bilat L3-S1 w/sed 04/21/19 MBB #2 Bilat L3-S1 w/o sed 03/13/19 MBB #1 Bilat L2-S1 w/sed 02/17/19 History of surgery TF ELDA #3 Lt. L3-4, L4-5 w/sed 07/17/2019 Discogram L3-4, L4-5 w/sed 06/25/2019 TF ELDA #2 Lt L4-5, L5-S1 w/sed 1/13/20 LESI #1 Lt. L4-5 w/sed 03/31/2019 Hx of tonsillectomy 05/1949 Status post right breast lumpectomy (10/11/10) Status post wrist surgery Left Family History Sister Malignant neoplasm of breast Malignant neoplasm of colon Malignant neoplasm of uterus Mother Arthritis Unknown Essential hypertension Social History Smoking Status: Never smoker Alcohol Intake Frequency: does not drink Substance Use: does not use Exam Narrative Narrative: Narrative: General Limitations: no limitations General appearance: Present alert and grimacing Head Head: Present atraumatic and normocephalic Eye Eye: Present normal appearance, PERRL and EOMI ENT ENT: Present normal exam Neck Neck: Present normal inspection; Absent lymphadenopathy Chest Chest: Present normal inspection Respiratory Respiratory: Present normal lung sounds bilaterally Cardiovascular Cardiovascular: Present normal heart sounds Adbominal Abdominal: Present soft and other (Tenderness on the right side and in the epigastrium. Positive Kim sign. No rebound tenderness.) Extremities Extremities: Present normal inspection Back Back: Present normal inspection; Absent CVA tenderness (R) or CVA tenderness (L) Neurological Neurological: Present alert and oriented X3 Psychiatric Psychiatric: Present normal affect Course Course Course Narrative: CBC, CMP, lipase, Chem-8, and EKG were ordered. She was treated with IV fluids for hydration, IV Dilaudid for pain, and IV Zofran for nausea. Labs were reviewed. CT scan of the abdomen pelvis shows distended gallbladder with possible cholelithiasis. Gallbladder ultrasound has been ordered. This shows a distended gallbladder with adenomyosis. I discussed the patient with the emergency room physician who will resume her care. Vital Signs Vital signs: Vital Signs Temperature 97.3 F 02/03/22 16:44 Pulse Rate 70 02/03/22 16:44 Respiratory Rate 18 02/03/22 16:44 Blood Pressure 186/95 02/03/22 16:44 Pulse Oximetry (%) 98 02/03/22 16:44 Oxygen Delivery Method 02/03/22 16:44 Temperature 97.3 F 02/03/22 16:44 Pulse Rate 55 L 02/03/22 23:59 Respiratory Rate 13 02/03/22 23:59 Blood Pressure 183/83 02/03/22 23:01 Pulse Oximetry (%) 96 02/03/22 23:59 Oxygen Delivery Method 02/03/22 16:44 MDM MDM Narrative Medical decision making narrative: Narrative: Lab Data Result diagrams: 02/03/22 17:22 02/03/22 17:22 Labs: Lab Results 02/03/22 02/03/22 02/03/22 Range/Units 17:22 17:22 17:48 WBC 9.0 (4.5-11.0) K/mcL RBC 3.99 (3.59-5.38) M/mcL Hgb 11.3 (11.2-15.7) g/dL Hct 35.7 (34.1-44.9) % POC Hct 36.0 (36-48) MCV 89.5 (80.0-100.0) fL MCH 28.3 (26.0-34.0) pg MCHC 31.7 (31.0-36.0) g/dL RDW 15.7 H (11.5-14.5) % Plt Count 239 (140-440) K/mcL MPV 10.7 (8.8-12.5) fL Immature Gran % (Auto) 0.3 (0.0-0.5) % Neut % (Auto) 79.4 H (38.0-78.0) % Lymph % (Auto) 12.0 L (15.5-49.0) % [place] % (Auto) 6.0 (1.0-12.0) % Eos % (Auto) 1.7 (0.0-7.0) % Baso % (Auto) 0.6 (0.0-2.0) % Lymph # (Auto) 1.08 L (1.50-4.80) K/mcL [place] # (Auto) 0.54 (0.10-0.90) K/mcL Eos # (Auto) 0.15 (0.00-0.70) K/mcL Baso # (Auto) 0.05 (0.00-0.30) K/mcL Immature Gran # 0.03 (0.00-0.05) K/mcl Absolute Neutrophils 7.14 (1.80-8.00) K/mcL POC Sodium 141 (133-145) Sodium 144 (133-145) mmol/L POC Potassium 3.4 (3.3-5.1) Potassium 3.3 (3.3-5.1) mmol/L POC Chloride 103 (96-108) Chloride 105 (96-108) mmol/L Carbon Dioxide 26 (22-30) mmol/L POC Total CO2 26.0 (22-30) Anion Gap 13.0 (8.0-16.0) POC BUN 25 H (6-20) BUN 21 (8-23) mg/dL Creatinine 1.0 (0.6-1.1) mg/dL POC Creatinine 0.9 (0.6-1.2) GFR Calculation 53 Glucose 122 H (70-105) mg/dL POC Glucose 116 H (70-105) Calcium 9.7 (8.6-10.4) mg/dL POC WB Ioniz Calcium 1.23 (1.16-1.32) Total Bilirubin < 0.2 (0.1-1.0) mg/dL AST 16 (<32) U/L ALT 12 (<40) U/L Alkaline Phosphatase 50 (39-117) U/L Total Protein 6.5 (5.9-8.4) gm/dL Albumin 3.7 (3.2-5.2) gm/dL Globulin 2.8 (2.2-3.7) gm/dL Albumin/Globulin Ratio 1.3 (1.0-2.3) Lipase 45 (7-60) U/L POC Troponin I (0.00-0.08) 02/03/22 Range/Units 17:50 WBC (4.5-11.0) K/mcL RBC (3.59-5.38) M/mcL Hgb (11.2-15.7) g/dL Hct (34.1-44.9) % POC Hct (36-48) MCV (80.0-100.0) fL MCH (26.0-34.0) pg MCHC (31.0-36.0) g/dL RDW (11.5-14.5) % Plt Count (140-440) K/mcL MPV (8.8-12.5) fL Immature Gran % (Auto) (0.0-0.5) % Neut % (Auto) (38.0-78.0) % Lymph % (Auto) (15.5-49.0) % [place] % (Auto) (1.0-12.0) % Eos % (Auto) (0.0-7.0) % Baso % (Auto) (0.0-2.0) % Lymph # (Auto) (1.50-4.80) K/mcL [place] # (Auto) (0.10-0.90) K/mcL Eos # (Auto) (0.00-0.70) K/mcL Baso # (Auto) (0.00-0.30) K/mcL Immature Gran # (0.00-0.05) K/mcl Absolute Neutrophils (1.80-8.00) K/mcL POC Sodium (133-145) Sodium (133-145) mmol/L POC Potassium (3.3-5.1) Potassium (3.3-5.1) mmol/L POC Chloride (96-108) Chloride (96-108) mmol/L Carbon Dioxide (22-30) mmol/L POC Total CO2 (22-30) Anion Gap (8.0-16.0) POC BUN (6-20) BUN (8-23) mg/dL Creatinine (0.6-1.1) mg/dL POC Creatinine (0.6-1.2) GFR Calculation Glucose (70-105) mg/dL POC Glucose (70-105) Calcium (8.6-10.4) mg/dL POC WB Ioniz Calcium (1.16-1.32) Total Bilirubin (0.1-1.0) mg/dL AST (<32) U/L ALT (<40) U/L Alkaline Phosphatase (39-117) U/L Total Protein (5.9-8.4) gm/dL Albumin (3.2-5.2) gm/dL Globulin (2.2-3.7) gm/dL Albumin/Globulin Ratio (1.0-2.3) Lipase (7-60) U/L POC Troponin I < 0.02 (0.00-0.08) Discharge Plan Patient/Caregiver Discharge Instructions Pt seen by HYDRO EXCAVATION OPERATOR/PA only: No Clinical Impression: Abdominal pain Patient Disposition: Still a Patient Follow up with: Katy Baird PA-C [Primary Care Provider] - Prescriptions: No Action (DME) CPAP replacement supplies Qty: 1 0RF Rx Instructions: Replace tubing, head gear, mask and water tank pantoprazole 40 mg tablet,delayed release (DR/EC) 40 mg PO QDAY Qty: 90 3RF atorvastatin 10 mg tablet 10 mg PO QDAY Qty: 90 3RF nitrofurantoin monohyd/m-cryst [Macrobid] 100 mg capsule 100 mg PO BID Qty: 14 0RF Rx Instructions: must administer with a meal/food vitamin B complex [B Complex-Vitamin B12] Tablet 1 tab PO .unknown fexofenadine [Lisha Allergy] 180 mg tablet 180 mg PO HS melatonin 10 mg tablet 10 mg PO QHS loperamide [Anti-Diarrheal (loperamide)] 2 mg capsule 2 mg PO QID PRN nystatin 100,000 unit/gram cream 1 applic topical BID PRN (Reason: rash) Qty: 30 0RF Rx Instructions: no more than 2 weeks on MCT Pro-Ruddy Packet PO budesonide 4 mg capsule,delayed release(DR/EC) 3 mg PO QDAY losartan 50 mg tablet 50 mg PO QDAY Qty: 90 3RF alendronate 70 mg tablet 70 mg PO QWEEK Qty: 90 3RF spironolactone 25 mg tablet 25 mg PO QDAY Qty: 90 3RF sertraline [Zoloft] 50 mg tablet 75 mg PO QDAY 90 Days Qty: 135 3RF apixaban 5 mg tablet 5 mg PO BID Rx Instructions: Prescribed by Katy Carter. Patient is on medication assistance plan and [facility] helps patient get these mailed to house. (DME) incentive spirometer See Rx Instructions .Route .MEDSUPPLY Qty: 1 0RF Rx Instructions: As directed tramadol 100 mg tablet 100 mg PO Q6H PRN (Reason: pain) Qty: 45 0RF cholecalciferol (vitamin D3) 1,000 unit capsule 2,000 unit PO QDAY calcium carbonate [Calcium 600] 600 mg calcium (1,500 mg) tablet 600 mg PO HS
[2022-02-03] MEDS ORDERED: ONDANSETRON 4 MG/2 ML VIAL IV ONE ×2 (17:28→18:35)
[2022-02-03] MEDS: HYDROmorphone 0.5 MG/0.5 ML SYRINGE IV PRN ×2 (17:56→18:45)
[2022-02-03 18:03] LABS: POC Calcium, Ionized 1.23 (1.16-1.32); POC Creatinine 0.9 (0.6-1.2); POC Potassium 3.4 (3.3-5.1)
[2022-02-03 18:14] LABS: Basophils # (Auto) 0.05 K/mcL (0.00-0.30); Basophils % (Auto) 0.6 % (0.0-2.0); Eosinophils # (Auto) 0.15 K/mcL (0.00-0.70); Eosinophils % (Auto) 1.7 % (0.0-7.0); Hematocrit 35.7 % (34.1-44.9); Hemoglobin 11.3 g/dL (11.2-15.7); Lymphocytes # (Auto) 1.08 K/mcL (1.50-4.80); Mean Cell Volume 89.5 fL (80.0-100.0); Mean Corpuscular HGB Conc 31.7 g/dL (31.0-36.0); Mean Platelet Volume 10.7 fL (8.8-12.5); Monocytes # (Auto) 0.54 K/mcL (0.10-0.90); Neutrophils % (Auto) 79.4 % (38.0-78.0); Platelet Count 239 K/mcL (140-440); RBC 3.99 M/mcL (3.59-5.38); Red Cell Distribution Width 15.7 % (11.5-14.5)
[2022-02-03 18:26] LABS: ALT/SGPT 12 U/L (<40); AST/SGOT 16 U/L (<32); Albumin 3.7 gm/dL (3.2-5.2); Albumin/Globulin Ratio 1.3 (1.0-2.3); Alkaline Phosphatase 50 U/L (39-117); Bilirubin,Total < 0.2 mg/dL (0.1-1.0); Blood Urea Nitrogen 21 mg/dL (8-23); Calcium 9.7 mg/dL (8.6-10.4); Carbon Dioxide 26 mmol/L (22-30); Chloride 105 mmol/L (96-108); Globulin 2.8 gm/dL (2.2-3.7); Glomerular Filtration Rate 53; Glucose 122 mg/dL (70-105)
--- NOTE | 2022-02-03 19:21 | Cat Scan Report ---
INDICATION: epigastric pain COMPARISON: Previous chest CT scan dated 06/15/2015 TECHNIQUE: Axial images were obtained through the abdomen and pelvis. Sagittally and coronally reformatted images. 80 mL Isovue 370 injected intravenously. Oral contrast material was not administered FINDINGS: Lung bases:7 mm subpleural nodule at the right lung base. This is unchanged since 06/15/2015. No new abnormalities Liver:Low-density abnormality measuring 18 mm in the right lobe of the liver is stable and considered benign. There is a second low density lesion in the inferior right lobe of the liver which measures 12 mm. This is not identified on previous chest CT scan. This has a benign appearance. If this patient does not have a history of primary malignancy this can be considered a benign lesion. Gallbladder, bilary:The bladder is mildly distended. There is probable cholelithiasis. No gallbladder wall thickening or pericholecystic fluid. Common bile duct measures 9 mm. This is mildly prominent. There is no intrahepatic bile duct dilatation. No detectable choledocholithiasis. Spleen:No splenomegaly. Normal enhancement of splenic and portal veins. Pancreas:No pancreatic mass. No peripancreatic abnormality Adrenal glands:Negative Kidneys,ureters,bladder:Kidneys appear mildly atrophic. There are bilateral nonobstructing renal calculi. There is a 4 mm right midpole calculus. There is a 6 mm left mid pole stone. There is no hydronephrosis. No solid renal mass. No hydroureter. No ureteral calculus. No bladder stone. No detectable bladder mass. Gastrointestinal:No detectable colonic mass. There is no diverticulitis. There is sigmoid diverticulosis Negative small bowel. No mechanical small bowel obstruction. No bowel wall thickening. No focal abnormality. Negative stomach and duodenum. There is a small hiatal hernia Appendix: The appendix is negative Vascular:Negative abdominal aorta. Superior mesenteric artery and celiac trunk are normal. Normal opacification of the inferior mesenteric artery Lymphatic:No retroperitoneal or mesenteric adenopathy Mesentery, peritoneum: No free intraperitoneal fluid. No intra-abdominal abscess Reproductive:Findings consistent with fundal fibroid. This measures approximately 4 cm. No adnexal mass Musculoskeletal:Multilevel degenerative disc disease. No lumbar compression fracture. Sacrum and pelvis are negative. No fracture. No hip fracture No abdominal wall or inguinal hernia IMPRESSION: 1. Small hiatal hernia 2. Mildly distended gallbladder. Probable cholelithiasis 3. Mildly dilated common bile duct. No detectable choledocholithiasis 4. Probably benign hepatic lesions 5. Nonobstructing renal calculi 6. No evidence for diverticulitis. There are sigmoid diverticuli degenerative disc disease The exam was performed using radiation dose optimization techniques including, but not limited to, automated exposure control, adjustment of the mA and/or kV according to patient size and use of iterative reconstruction technique. Interpreted and Authenticated by: Shankar Long 02/03/22
[2022-02-03] MEDS ORDERED: diphenhydrAMINE 50 MG/ML VIAL IV ONE (20:11)
[2022-02-03] MEDS ORDERED: METOCLOPRAMIDE 10 MG/2 ML VIAL IV ONE (22:27)
[2022-02-03] MEDS ORDERED: HYDROmorphone 0.5 MG/0.5 ML SYRINGE IV ONE (22:27)
[2022-02-04] MEDS ORDERED: PROMETHAZINE 25 MG/ML VIAL IM PRN ×2 (00:05→14:53)
--- NOTE | 2022-02-04 00:08 | Emergency Department Note ---
Course Course Course Narrative: Patient is a 81-year-old female who was signed out to me by Phyllis Lockwood. Briefly, patient presented to the emergency department due to epigastric and right upper quadrant abdominal pain. Patient was found to have findings concerning for gallbladder disease on CT. Ultrasound was ordered and patient was found to have cholelithiasis with distended common bile duct. Patient at this time continues to endorse abdominal pain and nausea. Vital Signs Vital signs: Vital Signs Temperature 97.3 F 02/03/22 16:44 Pulse Rate 70 02/03/22 16:44 Respiratory Rate 18 02/03/22 16:44 Blood Pressure 186/95 02/03/22 16:44 Pulse Oximetry (%) 98 02/03/22 16:44 Oxygen Delivery Method 02/03/22 16:44 Temperature 97.3 F 02/04/22 04:48 Pulse Rate 66 02/04/22 04:48 Respiratory Rate 16 02/04/22 04:48 Blood Pressure 166/83 02/04/22 04:48 Pulse Oximetry (%) 99 02/04/22 04:48 Oxygen Delivery Method 02/04/22 04:48 MDM MDM Narrative Medical decision making narrative: Narrative: Patient is a 81-year-old female who presents to the emergency department due to abdominal pain. Given patient's imaging finding there is concern for symptomatic cholelithiasis. Patient has received 2 doses of Dilaudid with minimal relief of pain, Zofran with minimal relief of nausea, and Reglan with improved nausea. Given patient's continued symptoms I discussed patient with Dr. Abdalla who agreed with admission and discussions of cholecystectomy. I have spoken to patient about this and she agrees with an admission at this time. Lab Data Result diagrams: 02/03/22 17:22 02/03/22 17:22 Labs: Lab Results 02/03/22 02/03/22 02/03/22 Range/Units 17:22 17:22 17:48 WBC 9.0 (4.5-11.0) K/mcL RBC 3.99 (3.59-5.38) M/mcL Hgb 11.3 (11.2-15.7) g/dL Hct 35.7 (34.1-44.9) % POC Hct 36.0 (36-48) MCV 89.5 (80.0-100.0) fL MCH 28.3 (26.0-34.0) pg MCHC 31.7 (31.0-36.0) g/dL RDW 15.7 H (11.5-14.5) % Plt Count 239 (140-440) K/mcL MPV 10.7 (8.8-12.5) fL Immature Gran % (Auto) 0.3 (0.0-0.5) % Neut % (Auto) 79.4 H (38.0-78.0) % Lymph % (Auto) 12.0 L (15.5-49.0) % [place] % (Auto) 6.0 (1.0-12.0) % Eos % (Auto) 1.7 (0.0-7.0) % Baso % (Auto) 0.6 (0.0-2.0) % Lymph # (Auto) 1.08 L (1.50-4.80) K/mcL [place] # (Auto) 0.54 (0.10-0.90) K/mcL Eos # (Auto) 0.15 (0.00-0.70) K/mcL Baso # (Auto) 0.05 (0.00-0.30) K/mcL Immature Gran # 0.03 (0.00-0.05) K/mcl Absolute Neutrophils 7.14 (1.80-8.00) K/mcL POC Sodium 141 (133-145) Sodium 144 (133-145) mmol/L POC Potassium 3.4 (3.3-5.1) Potassium 3.3 (3.3-5.1) mmol/L POC Chloride 103 (96-108) Chloride 105 (96-108) mmol/L Carbon Dioxide 26 (22-30) mmol/L POC Total CO2 26.0 (22-30) Anion Gap 13.0 (8.0-16.0) POC BUN 25 H (6-20) BUN 21 (8-23) mg/dL Creatinine 1.0 (0.6-1.1) mg/dL POC Creatinine 0.9 (0.6-1.2) GFR Calculation 53 Glucose 122 H (70-105) mg/dL POC Glucose 116 H (70-105) Calcium 9.7 (8.6-10.4) mg/dL POC WB Ioniz Calcium 1.23 (1.16-1.32) Total Bilirubin < 0.2 (0.1-1.0) mg/dL AST 16 (<32) U/L ALT 12 (<40) U/L Alkaline Phosphatase 50 (39-117) U/L Total Protein 6.5 (5.9-8.4) gm/dL Albumin 3.7 (3.2-5.2) gm/dL Globulin 2.8 (2.2-3.7) gm/dL Albumin/Globulin Ratio 1.3 (1.0-2.3) Lipase 45 (7-60) U/L POC Troponin I (0.00-0.08) 02/03/22 Range/Units 17:50 WBC (4.5-11.0) K/mcL RBC (3.59-5.38) M/mcL Hgb (11.2-15.7) g/dL Hct (34.1-44.9) % POC Hct (36-48) MCV (80.0-100.0) fL MCH (26.0-34.0) pg MCHC (31.0-36.0) g/dL RDW (11.5-14.5) % Plt Count (140-440) K/mcL MPV (8.8-12.5) fL Immature Gran % (Auto) (0.0-0.5) % Neut % (Auto) (38.0-78.0) % Lymph % (Auto) (15.5-49.0) % [place] % (Auto) (1.0-12.0) % Eos % (Auto) (0.0-7.0) % Baso % (Auto) (0.0-2.0) % Lymph # (Auto) (1.50-4.80) K/mcL [place] # (Auto) (0.10-0.90) K/mcL Eos # (Auto) (0.00-0.70) K/mcL Baso # (Auto) (0.00-0.30) K/mcL Immature Gran # (0.00-0.05) K/mcl Absolute Neutrophils (1.80-8.00) K/mcL POC Sodium (133-145) Sodium (133-145) mmol/L POC Potassium (3.3-5.1) Potassium (3.3-5.1) mmol/L POC Chloride (96-108) Chloride (96-108) mmol/L Carbon Dioxide (22-30) mmol/L POC Total CO2 (22-30) Anion Gap (8.0-16.0) POC BUN (6-20) BUN (8-23) mg/dL Creatinine (0.6-1.1) mg/dL POC Creatinine (0.6-1.2) GFR Calculation Glucose (70-105) mg/dL POC Glucose (70-105) Calcium (8.6-10.4) mg/dL POC WB Ioniz Calcium (1.16-1.32) Total Bilirubin (0.1-1.0) mg/dL AST (<32) U/L ALT (<40) U/L Alkaline Phosphatase (39-117) U/L Total Protein (5.9-8.4) gm/dL Albumin (3.2-5.2) gm/dL Globulin (2.2-3.7) gm/dL Albumin/Globulin Ratio (1.0-2.3) Lipase (7-60) U/L POC Troponin I < 0.02 (0.00-0.08) Discharge Plan Patient/Caregiver Discharge Instructions Pt seen by WEB APPLICATION DEV SPECIALIST/PA only: No Clinical Impression: Abdominal pain Patient Disposition: Xfer As Outpt/Obs ([facility]) Discharge Date/Time: 02/04/22 01:35
[2022-02-04 01:27] LABS: Prothrombin Time 13.4 sec (11.9-14.5)
[2022-02-04] MEDS ORDERED: PROMETHAZINE 25 MG/ML VIAL IV PRN ×2 (01:57→14:53)
[2022-02-04] MEDS: HYDROmorphone 0.5 MG/0.5 ML SYRINGE IV PRN ×4 (02:10→11:54)
[2022-02-04] MEDS: LACTATED RINGERS 1,000 ML IV SCH ×3 (02:10→21:50)
[2022-02-04] MEDS: ONDANSETRON 4 MG/2 ML VIAL IV PRN ×3 (02:12→11:54)
[2022-02-04 03:58] LABS: Appearance,Urine CLEAR (Clear); Bilirubin,Urine Negative (Negative); Color,Urine YELLOW; Culture Indicated,Urine No; Glucose,Urine (UA) Negative (Negative); Ketones,Urine Negative (Negative); Leukocyte Esterase,Urine 25 /uL (Negative); Nitrate,Urine Negative (Negative); Protein,Urine Negative (Negative); Urine Blood Negative (Negative); Urine RBC 1 /hpf (0-3); Urine Squamous Epithelial Cell < 1 /hpf (0-4); Urine WBC 5 /hpf (0-4); Urobilinogen,Urine Negative
--- NOTE | 2022-02-04 06:03 | XRay Report ---
INDICATION: pre-surgery TECHNIQUE: AP portable semiupright chest x-ray COMPARISON: Previous examination dated 01/10/2022 FINDINGS: Lungs:Lungs are negative. No focal pulmonary parenchymal infiltrate or mass Heart, vascular:No significant cardiomegaly. Pulmonary vascularity is normal. No pulmonary edema or pulmonary congestion Mediastinum, vivian:No mediastinal widening. No hilar mass Pleura:No pleural fluid. No pleural-based mass or calcification Skeletal:Negative.. There are surgical clips in the right axilla IMPRESSION: 1. Negative AP chest x-ray 2. No significant interval change Interpreted and Authenticated by: Shankar Long 02/04/22
--- NOTE | 2022-02-04 06:49 | Ultrasound Report ---
INDICATION: Upper abdominal pain TECHNIQUE: Grayscale and color flow Doppler spectral imaging COMPARISON: CT scan dated 02/03/2022 FINDINGS: Gallbladder:Echogenic abnormality consistent with a mobile gallstone. This measures 1.3 cm. Common tail artifact from the gallbladder wall identified consistent with adenomyomatosis. Colon wall is not thickened. There is no pericholecystic fluid. Patient was slightly tender when scanned over the right upper quadrant Common bile duct:Common bile duct measures 7 mm. This is prominent. No detectable choledocholithiasis. No evidence for intrahepatic bile duct dilatation Liver:Liver appears echogenic consistent with hepatic steatosis. There is a 1.8 cm cyst adjacent to the gallbladder fossa. Liver [id number] cm Portal vein:Normal hepatopedal portal venous flow Pancreas:Visualized portions of the pancreas are normal IMPRESSION: 1. Cholelithiasis and probable adenomyomatosis 2. Prominent common bile duct. No detectable choledocholithiasis 3. Probable hepatic steatosis Interpreted and Authenticated by: Shankar Long 02/04/22
--- NOTE | 2022-02-04 08:53 | General Surg History&Physical ---
HPI History of Present Illness Patient information: Note initiated : 02/04/22 at 8:51 am Service Date, if different from initiated Date: [] Patient: Piedad Sánchez a 81 y/o F admitted on 02/04/22 for Electrocardiogram. Chief Complaint: [] Chief complaint: Gallbladder disease History of present illness: Ms. Sánchze is a 81 year old F who presented to the emergency room with a 3-day history of mid abdominal pain. This was followed by nausea and vomiting. The pain radiated through to her back and became increasingly severe. She was seen in the emergency room in severe discomfort. Multiple doses of Dilaudid did not control her pain. LFTs were normal however ultrasound showed thickened gallbladder wall with gallstones. She is mildly improved but still has significant pain and tenderness . Patient was counseled for laparoscopic cholecystectomy later today. Constitutional Constitutional: Present headache(s) EENT Ears: Absent decreased hearing or tinnitus Breasts Breasts: Absent change in shape, mass, nipple discharge or skin changes Cardiovascular Cardiovascular: Present leg edema; Absent dyspnea Respiratory Respiratory: Present pain on inspirtation (Status post left rib fractures) Gastrointestinal Gastrointestinal: Present abdominal pain, heartburn, nausea and vomiting Genitourinary Genitourinary: Absent urinary hesitancy, urinary incontinence or urinary urgency Musculoskeletal Musculoskeletal: Present arthralgias, back pain, joint swelling and myalgias Integumentary Integumentary: Absent changing lesions, new lesions or pruritus Neurological Neurological: Absent behavioral changes, headache(s), numbness or tremor(s) Psychiatric Psychiatric: Present anxiety Endocrine Endocrine: Absent excessive sweating or palpitations Hematologic/Lymphatic Hematologic/Lymphatic: Absent easy bleeding, easy bruising or lymphadenopathy Allergic/Immunologic Allergic/Immunologic: Present GI upset with certain foods; Absent tongue swelling, uticaria or wheezing PFSH PFSH All Active Problems (Updated 02/04/22 @ 09:09 by Lachelle Abdalla MD) On anticoagulant therapy (Acute) Left rib fracture (Acute) Cholelithiasis and cholecystitis without obstruction (Acute) Abdominal pain (Acute) Shortness of breath (Acute) Cough (Acute) Rib fracture (Acute) Trochanteric bursitis of both hips (Chronic) Wrist pain (Acute) Weight gain (Acute) Rash (Acute) Yeast dermatitis (Acute) Plantar fasciitis (Acute) Atrial fibrillation (Acute) Difficulty with speech (Acute) Received intravenous tissue plasminogen activator (tPA) in emergency department (Acute) Hot flashes (Acute) Radiculopathy, lumbar region (Chronic) Radiculopathy, lumbosacral region (Chronic) Depression (Chronic) Tobacco use (Chronic) Anxiety disorder (Chronic) Hypertension (Chronic) Hypothyroidism, unspecified (Chronic) History of breast cancer (Chronic) Chronic pain (Chronic) Spondylosis without myelopathy or radiculopathy, 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) GERD (gastroesophageal reflux disease) (Chronic) Otalgia, right ear (Acute) Urinary tract infection (Acute) Insomnia (Chronic) Hypokalemia (Acute) Sleep apnea (Chronic) Chronic sinusitis (Chronic) Peptic ulcer disease (Chronic) Kidney stones (Chronic) Essential hypertension (Chronic) Bronchitis (Chronic) Malignant neoplasm of breast (Chronic) Arthritis (Chronic) Medical History Anxiety disorder Arthritis Atrial fibrillation Pt is managed by cardiology Bronchitis Chronic pain Chronic SI joint pain Chronic sinusitis Depression Essential hypertension GERD (gastroesophageal reflux disease) History of breast cancer History of radiation therapy 2011 History of tobacco use Hypertension Hypertensive urgency Hypokalemia Hypothyroidism, unspecified Insomnia Kidney stones 2007 Low back pain Malignant neoplasm of breast 2011- resolved Medicare annual wellness visit, initial Non-cardiac chest pain Peptic ulcer disease 1964 Plantar fasciitis Left foot Pleuritic chest pain Radiculopathy, lumbar region Radiculopathy, lumbosacral region Sleep apnea 2006 Spondylosis without myelopathy or radiculopathy, lumbar region Tobacco use Trochanteric bursitis of both hips Urolithiasis Surgical History H/O colonoscopy 06/18/2019 - Dr. Rutledge H/O dilation and curettage H/O excision of mass Lump removed H/O knee surgery (06/26/11) H/O nasal septoplasty (06/11/13) H/O shoulder surgery Left History of surgery SI Joint Injection, bilat w/o sed 06/19/19 RFTC Bilat L3-S1 w/sed 04/21/19 MBB #2 Bilat L3-S1 w/o sed 03/13/19 MBB #1 Bilat L2-S1 w/sed 02/17/19 History of surgery TF ELDA #3 Lt. L3-4, L4-5 w/sed 07/17/2019 Discogram L3-4, L4-5 w/sed 06/25/2019 TF ELDA #2 Lt L4-5, L5-S1 w/sed 04/21/19 LESI #1 Lt. L4-5 w/sed 03/31/2019 Hx of tonsillectomy 05/1951 Status post right breast lumpectomy (10/11/10) Status post wrist surgery Left Family History Sister Malignant neoplasm of breast Malignant neoplasm of colon Malignant neoplasm of uterus Mother Arthritis Unknown Essential hypertension Social History marital status: smoking status: Former smoker quit date: 03/09/09 alcohol intake frequency: does not drink substance use type: does not use MEDS/ALLERGIES Home Medications and Allergies Home Medications Medication Instructions Recorded Confirmed Type fexofenadine 180 mg tablet 180 mg PO HS 09/18/16 02/04/22 History (Lisha Allergy) calcium carbonate 600 mg calcium 600 mg PO HS 01/07/19 02/04/22 History (1,500 mg) tablet (Calcium) cholecalciferol (vitamin D3) 25 2,000 unit PO QDAY 01/07/19 02/04/22 History mcg (1,000 unit) capsule vitamin B complex (B 1 tab PO QHS 07/15/19 02/04/22 History Complex-Vitamin B12 tablet) melatonin 10 mg tablet 10 mg PO QHS 11/21/19 02/04/22 History loperamide 2 mg capsule 2 mg PO QID PRN Diarrhea 05/06/20 02/04/22 History (Anti-Diarrheal (loperamide)) CPAP replacement supplies #1 ea 06/03/20 02/03/22 Rx nystatin 100,000 unit/gram topical 1 applic topical BID PRN rash #30 11/02/20 02/04/22 Rx cream grams apixaban 5 mg tablet 5 mg PO BID 11/10/21 02/04/22 History budesonide 4 mg capsule,delayed 3 mg PO QDAY 11/10/21 02/04/22 History release losartan 50 mg tablet 50 mg PO QDAY #90 tabs 11/10/21 02/04/22 Rx nut.tx.impaired digest fxn (MCT packet PO 11/10/21 02/03/22 History Pro-Ruddy oral packet) pantoprazole 40 mg tablet,delayed 40 mg PO QDAY #90 tabs 11/10/21 02/04/22 Rx release sertraline 50 mg tablet (Zoloft) 75 mg PO QDAY 3 months #135 tabs 11/10/21 02/04/22 Rx spironolactone 25 mg tablet 25 mg PO QDAY #90 tabs 11/10/21 02/04/22 Rx atorvastatin 10 mg tablet 10 mg PO QDAY #90 tabs 11/24/21 02/04/22 Rx incentive spirometer #1 ea 01/10/22 02/03/22 Rx tramadol 100 mg tablet 100 mg PO Q6H PRN pain #45 tabs 01/18/22 02/04/22 Rx nitrofurantoin 100 mg PO BID #14 caps 02/01/22 02/04/22 Rx monohydrate/macrocrystals 100 mg capsule (Macrobid) Allergies Allergy/AdvReac Type Severity Reaction Status Date / Time mold Allergy Mild Congested Verified 02/04/22 02:23 latex AdvReac Intermediate rash Verified 02/03/22 16:46 adhesive tape AdvReac Mild Agitated Verified 02/03/22 16:46 codeine AdvReac Mild Anxiety Verified 02/04/22 02:23 hydrocodone AdvReac Mild Anxiety Verified 02/04/22 02:23 HAY FEVER Allergy Unknown UNKNOWN Uncoded 01/18/22 13:23 pain medication AdvReac Intermediate nerve Uncoded 01/18/22 13:23 ending exposed per patient and "creepy crawlies." Physical Examination Vital Signs Vital signs: Temp Pulse Resp BP Pulse Ox O2 Del Method 97.1 F 78 14 160/85 93 02/04/22 08:00 02/04/22 08:00 02/04/22 08:00 02/04/22 08:00 02/04/22 08:00 02/04/22 08:00 General physical appearance General physical exam: well developed, well nourished, no distress, moderate pain and obese Eyes Eye exam: PERRL and normal ocular movement ENT ENT exam: normal pinna, normal nares, normal mucosa and no hearing loss Head Head exam IM: Present atraumatic, normal inspection and normocephalic Neck Neck exam: no masses, no bruits, trachea midline, no lymphadenopathy and no venous distension Cardiovascular Cardiovascular exam IM: Present normal rate and rhythm, RRR, +S1 and +S2; Absent JVD Respiratory Respiratory exam: normal expansion, normal respiratory effort and clear to auscultation Abdomen Abdomen: Present tender (Epigastric and right upper quadrant tenderness with guarding), bowel sounds (No longer has), guarding and distended Integumentary Integumentary: Present no rash, no growths and no abnormal pigmentation Neurologic Neurologic: Present normal coordination and normal sensation Musculoskeletal Musculoskeletal: Present normal gait and normal posture Psychiatric Psychiatric: Present oriented to time, oriented to person, oriented to place, speech is normal and memory intact Results Labs Result diagrams: 02/03/22 17:22 02/03/22 17:22 Labs: Abnormal lab results 02/03/22 02/03/22 02/03/22 Range/Units 17:22 17:22 17:48 RDW 15.7 H (11.5-14.5) % Neut % (Auto) 79.4 H (38.0-78.0) % Lymph % (Auto) 12.0 L (15.5-49.0) % Lymph # (Auto) 1.08 L (1.50-4.80) K/mcL POC BUN 25 H (6-20) Glucose 122 H (70-105) mg/dL POC Glucose 116 H (70-105) Ur Leukocyte Esterase (Negative) /uL Urine WBC (0-4) /hpf 02/04/22 Range/Units 03:29 RDW (11.5-14.5) % Neut % (Auto) (38.0-78.0) % Lymph % (Auto) (15.5-49.0) % Lymph # (Auto) (1.50-4.80) K/mcL POC BUN (6-20) Glucose (70-105) mg/dL POC Glucose (70-105) Ur Leukocyte Esterase 25 A (Negative) /uL Urine WBC 5 H (0-4) /hpf Diabetes panel 02/03/22 Range/Units 17:22 Sodium 144 (133-145) mmol/L Potassium 3.3 (3.3-5.1) mmol/L Chloride 105 (96-108) mmol/L Carbon Dioxide 26 (22-30) mmol/L BUN 21 (8-23) mg/dL Creatinine 1.0 (0.6-1.1) mg/dL Glucose 122 H (70-105) mg/dL Calcium 9.7 (8.6-10.4) mg/dL AST 16 (<32) U/L ALT 12 (<40) U/L Alkaline Phosphatase 50 (39-117) U/L Total Protein 6.5 (5.9-8.4) gm/dL Albumin 3.7 (3.2-5.2) gm/dL Calcium panel 02/03/22 Range/Units 17:22 Calcium 9.7 (8.6-10.4) mg/dL Albumin 3.7 (3.2-5.2) gm/dL Pituitary panel 02/03/22 Range/Units 17:22 Sodium 144 (133-145) mmol/L Potassium 3.3 (3.3-5.1) mmol/L Chloride 105 (96-108) mmol/L Carbon Dioxide 26 (22-30) mmol/L BUN 21 (8-23) mg/dL Creatinine 1.0 (0.6-1.1) mg/dL Glucose 122 H (70-105) mg/dL Calcium 9.7 (8.6-10.4) mg/dL Adrenal panel 02/03/22 Range/Units 17:22 Sodium 144 (133-145) mmol/L Potassium 3.3 (3.3-5.1) mmol/L Chloride 105 (96-108) mmol/L Carbon Dioxide 26 (22-30) mmol/L BUN 21 (8-23) mg/dL Creatinine 1.0 (0.6-1.1) mg/dL Glucose 122 H (70-105) mg/dL Calcium 9.7 (8.6-10.4) mg/dL Total Bilirubin < 0.2 (0.1-1.0) mg/dL AST 16 (<32) U/L ALT 12 (<40) U/L Alkaline Phosphatase 50 (39-117) U/L Total Protein 6.5 (5.9-8.4) gm/dL Albumin 3.7 (3.2-5.2) gm/dL All other labs normal. A/P Assessment and plan (1) Cholelithiasis and cholecystitis without obstruction: Status: Acute (2) Left rib fracture: Status: Acute (3) Atrial fibrillation: Status: Acute Comment: Pt is managed by cardiology Qualifiers: Atrial fibrillation type: unspecified Qualified Code(s): I48.91 - Unspecified atrial fibrillation (4) Anxiety disorder: Status: Chronic (5) Chronic pain: Status: Chronic (6) Sleep apnea: Status: Chronic Comment: 2005 Qualifiers: Sleep apnea type: unspecified type Qualified Code(s): G47.30 - Sleep apnea, unspecified (7) Essential hypertension: Status: Chronic (8) Hypertension: Status: Chronic (9) On anticoagulant therapy: Status: Acute Plan Continue antibiotic therapy Scheduled for laparoscopic cholecystectomy later today Hold anticoagulant therapy x2 days Sepsis Sepsis Identified: No Time Spent With Patient Time: Total time spent is greater than 50% in coordination of care (as documented) at patient's floor/unit and/or counseling patient:
[2022-02-04] MEDS ORDERED: LIDOCAINE HCL/PF 100 MG/5 ML SYRINGE IV ONE (14:18)
[2022-02-04] MEDS ORDERED: KETAMINE 50 MG/ML Syringe (ANEST) IV ONE (14:18)
[2022-02-04] MEDS ORDERED: DEXAMETHASONE 10 MG/ML VIAL ONE (14:18)
[2022-02-04] MEDS ORDERED: TRANEXAMIC ACID 1,000 MG/10 ML VIAL ONE (14:18)
[2022-02-04] MEDS ORDERED: PHENYLephrine 1 MG/10 ML SYRINGE (ANEST) ONE (14:18)
[2022-02-04] MEDS ORDERED: PROPOFOL 200 MG/20 ML VIAL IV ONE (14:18)
[2022-02-04] MEDS ORDERED: ROCURONIUM 10 MG/ML ML IV ONE (14:18)
[2022-02-04] MEDS ORDERED: SUGAMMADEX SODIUM 200 MG/2 ML VIAL IV ONE (14:18)
[2022-02-04] MEDS ORDERED: GLYCOPYRROLATE 0.2 MG/ML VIAL IV ONE (14:18)
[2022-02-04] MEDS ORDERED: ONDANSETRON 4 MG/2 ML VIAL ONE (14:18)
[2022-02-04] MEDS ORDERED: MAGNESIUM SULFATE 2 GM/50 ML BAG IV ONE (14:18)
[2022-02-04] MEDS ORDERED: fentaNYL 100 MCG/2 ML VIAL IV ONE (14:18)
[2022-02-04] MEDS ORDERED: METHOCARBAMOL 1,000 MG/10 ML VIAL IV PRN (14:53)
[2022-02-04] MEDS ORDERED: MEPERIDINE 25 MG/ML VIAL IV PRN (14:53)
[2022-02-04] MEDS ORDERED: IPRATROPIUM/ALBUTEROL 3 ML AMPUL.NEB NEB PRN (14:53)
[2022-02-04] MEDS ORDERED: METOPROLOL TARTRATE 5 MG/5 ML VIAL IV PRN (14:53)
[2022-02-04] MEDS ORDERED: NALOXONE HCL 0.4 MG/ML VIAL IV PRN (14:53)
[2022-02-04] MEDS ORDERED: LABETALOL 5 MG/ML ML IV PRN (14:53)
[2022-02-04] MEDS ORDERED: LACTATED RINGERS 250 ML IV PRN (14:53)
[2022-02-04] MEDS ORDERED: fentaNYL 100 MCG/2 ML VIAL IV PRN (14:53)
[2022-02-04] MEDS ORDERED: MEPERIDINE 50 MG/ML VIAL IM PRN (14:53)
[2022-02-04] MEDS ORDERED: ONDANSETRON 4 MG/2 ML VIAL IV PRN (14:53)
[2022-02-04] MEDS ORDERED: ACETAMINOPHEN 1,000 MG/100 ML BAG IV ONE (14:53)
[2022-02-04] MEDS ORDERED: METOCLOPRAMIDE 10 MG/2 ML VIAL IV PRN (14:53)
[2022-02-04] MEDS ORDERED: LACTATED RINGERS 1,000 ML IV SCH (15:00)
--- NOTE | 2022-02-04 15:32 | Brief Operative Note ---
Brief Operative Note Date of procedure: 02/04/22 Pre-op diagnosis: acute cholecystitis with cholelithiasis Post-op diagnosis: other (acute cholecystitis with cholelithiasis) Procedure: laparoscopic cholecystectomy Grafts/Implants: No (#10 JOSE DRAIN) Anesthesia: GETA Findings: SEVERE INFLAMMATION AND EDEMA OF GALLBLADDER Complications: none Surgeon: Lachelle Abdalla Estimated blood loss (cc): 25 Specimens Removed/Pathology: other (GALLBLADDER) Condition: stable Disposition: PACU
[2022-02-04] MEDS ORDERED: TRAMADOL 100 MG PO PRN (16:17)
[2022-02-04] MEDS: traMADol 50 MG TABLET PO PRN (19:55)
[2022-02-04] MEDS ORDERED: MELATONIN 3 MG TABLET PO SCH (21:00)
[2022-02-04] MEDS: NITROFURANTOIN SR 100 MG CAPSULE PO SCH (21:29)
[2022-02-05] MEDS: traMADol 50 MG TABLET PO PRN (05:49)
[2022-02-05 07:22] LABS: Basophils # (Auto) 0.01 K/mcL (0.00-0.30); Basophils % (Auto) 0.1 % (0.0-2.0); Eosinophils # (Auto) 0 K/mcL (0.00-0.70); Eosinophils % (Auto) 0 % (0.0-7.0); Hematocrit 32.2 % (34.1-44.9); Hemoglobin 9.8 g/dL (11.2-15.7); Lymphocytes % (Auto) 6.6 % (15.5-49.0); Mean Cell Volume 90.7 fL (80.0-100.0); Mean Corpuscular HGB Conc 30.4 g/dL (31.0-36.0); Mean Platelet Volume 10.7 fL (8.8-12.5); Monocytes # (Auto) 0.74 K/mcL (0.10-0.90); Monocytes % (Auto) 5.4 % (1.0-12.0); Neutrophils % (Auto) 87.2 % (38.0-78.0); Platelet Count 202 K/mcL (140-440); RBC 3.55 M/mcL (3.59-5.38); Red Cell Distribution Width 15.9 % (11.5-14.5); WBC 13.7 K/mcL (4.5-11.0)
[2022-02-05] MEDS ORDERED: PANTOPRAZOLE 40 MG TABLET PO SCH (07:30)
[2022-02-05 07:41] LABS: ALT/SGPT 26 U/L (<40); AST/SGOT 36 U/L (<32); Albumin 3.3 gm/dL (3.2-5.2); Albumin/Globulin Ratio 1.2 (1.0-2.3); Alkaline Phosphatase 53 U/L (39-117); Bilirubin,Direct < 0.2 mg/dL (0-0.3); Bilirubin,Total 0.3 mg/dL (0.1-1.0); Blood Urea Nitrogen 8 mg/dL (8-23); Calcium 8.2 mg/dL (8.6-10.4); Carbon Dioxide 27 mmol/L (22-30); Chloride 98 mmol/L (96-108); Globulin 2.7 gm/dL (2.2-3.7); Glomerular Filtration Rate 86; Glucose 121 mg/dL (70-105); Lactate Dehydrogenase 220 U/L (135-225); Phosphorous 2.3 mg/dL (2.5-4.5); Triglycerides 62 mg/dL (<150); Uric Acid 2.9 mg/dL (2.5-8.0)
[2022-02-05] MEDS: NITROFURANTOIN SR 100 MG CAPSULE PO SCH (08:43)
[2022-02-05] MEDS ORDERED: BUDESONIDE 3 MG CAP.XL.24H PO SCH (09:00)
[2022-02-05] MEDS ORDERED: SERTRALINE 50 MG TABLET PO SCH (09:00)
[2022-02-05] MEDS ORDERED: LOSARTAN 50 MG TABLET PO SCH (09:00)
[2022-02-05] MEDS ORDERED: SPIRONOLACTONE 25 MG TABLET PO SCH (09:00)
[2022-02-05] MEDS: LACTATED RINGERS 1,000 ML IV SCH (09:13)
[2022-02-05] MEDS ORDERED: CALCIUM CARBONATE 500 MG TAB.CHEW CHEWED PRN (10:38)
--- NOTE | 2022-02-05 10:53 | Discharge Summary ---
Discharge Provider Provider IMPORTANT FOLLOW-UP INFORMATION FOR PCP: Patient information: Note initiated : 02/05/22 at 10:47 am Service Date, if different from initiated Date: [] Patient: Pidead Sánchez 81 y/o F admitted on 02/04/22 for Electrocardiogram. Chief Complaint: [] Date of admission: 02/04/22 01:35 Discharge date: 02/05/22 Primary care physician: Katy Baird PA-C Admitting clinician: Lachelle Abdalla Attending physician on admission: Lachelle Abdalla Attending physician on discharge: Lachelle Abdalla Discharging clinician: Lachelle Abdalla COURSE Hospital Course Hospital course: 81-year-old female with acute cholecystitis with cholelithiasis. She underwent laparoscopic cholecystectomy on yesterday. She had acute severe inflammation and edema of the gallbladder. Surgery proceeded without difficulty. She has been clinically stable and is ready for discharge home. She will be discharged on Levaquin x7 days Discharge diagnosis: Acute cholecystitis with cholelithiasis Secondary discharge diagnosis: Chronic anticoagulant therapy History of atrial fibrillation History of left rib fractures Reason for admission: Acute cholecystitis with cholelithiasis Procedures: Laparoscopic cholecystectomy Pertinent studies/significant findings: None Complications: None Time Spent with Patient Time attestation: Total time spent providing and/or coordinating discharge services: Time spent: Less than 30 minutes Physical Examination Vital Signs Vital signs: Temp Pulse Resp BP Pulse Ox O2 Del Method O2 Flow Rate 98.2 F 70 16 164/96 97 0 02/05/22 07:43 02/05/22 01:30 02/05/22 07:43 02/05/22 07:43 02/05/22 07:43 02/05/22 07:43 02/04/22 16:07 General physical appearance General physical exam: well developed, well nourished, no distress and no pain Eyes Eye exam: PERRL and normal ocular movement; negative icteric ENT ENT exam: normal nares and normal mucosa Head Head exam IM: Present atraumatic, normal inspection and normocephalic Neck Neck exam: no masses, no bruits, trachea midline, no lymphadenopathy and no venous distension Cardiovascular Cardiovascular exam IM: Present normal rate and rhythm, RRR, +S1 and +S2; Absent JVD Respiratory Respiratory exam: normal expansion, normal respiratory effort and clear to auscultation Abdomen Abdomen: Present soft and tender (Mild tenderness around port sites) Integumentary Integumentary: Present no rash, no growths and no abnormal pigmentation Neurologic Neurologic: Present normal coordination and normal sensation Musculoskeletal Musculoskeletal: Present normal gait and normal posture Psychiatric Psychiatric: Present oriented to time, oriented to person, oriented to place, speech is normal and memory intact Discharge Plan Patient/Caregiver Discharge Instructions Activity: increase activity as tolerated Diet: Low Fat Prescriptions: New levofloxacin [levofloxacin] 750 mg tablet 750 mg PO DAILY Qty: 7 0RF No Action pantoprazole 40 mg tablet,delayed release (DR/EC) 40 mg PO QDAY Qty: 90 3RF atorvastatin 10 mg tablet 10 mg PO QDAY Qty: 90 3RF nitrofurantoin monohyd/m-cryst [Macrobid] 100 mg capsule 100 mg PO BID Qty: 14 0RF Rx Instructions: must administer with a meal/food vitamin B complex [B Complex-Vitamin B12] Tablet 1 tab PO QHS fexofenadine [Lisha Allergy] 180 mg tablet 180 mg PO HS melatonin 10 mg tablet 10 mg PO QHS loperamide [Anti-Diarrheal (loperamide)] 2 mg capsule 2 mg PO QID PRN (Reason: Diarrhea) nystatin 100,000 unit/gram cream 1 applic topical BID PRN (Reason: rash) Qty: 30 0RF Rx Instructions: no more than 2 weeks on budesonide 4 mg capsule,delayed release(DR/EC) 3 mg PO QDAY losartan 50 mg tablet 50 mg PO QDAY Qty: 90 3RF spironolactone 25 mg tablet 25 mg PO QDAY Qty: 90 3RF sertraline [Zoloft] 50 mg tablet 75 mg PO QDAY 90 Days Qty: 135 3RF apixaban 5 mg tablet 5 mg PO BID Rx Instructions: Prescribed by Katy Carter. Patient is on medication assistance plan and [facility] helps patient get these mailed to house. tramadol 100 mg tablet 100 mg PO Q6H PRN (Reason: pain) Qty: 45 0RF cholecalciferol (vitamin D3) 1,000 unit capsule 2,000 unit PO QDAY calcium carbonate [Calcium 600] 600 mg calcium (1,500 mg) tablet 600 mg PO HS Prescription drug monitoring program results: PDMP not reviewed Follow Up Plan Follow up with: Katy Baird PA-C [Primary Care Provider] - Lachelle Abdalla MD [Physician] - (Contact the office tomorrow for an appointment in 2 weeks) Patient Disposition: Home, Self-Care Assessment: Patient has progressed nicely and has stable for discharge Prognosis: Good Rehab Potential: Good I certify that the patient requires SNF services: No Overall status at discharge: patient is progressing back to baseline Discharge Orders: Discharge Order (Routine); Ordered 02/05/22 Ordered By: Lachelle Abdalla Pending Pending Pending: Resuscitation Status Resuscitate (Full Code) Diet Low Fat Diet Start Sun Feb 05 08 Budesonide (Budesonide 3 Mg Cap.Xl.24h) 3 mg PO DAILY DIMITRIOS Last Admin: 02/05/22 09:12 Dose: 3 mg Documented By: RAY Calcium Carbonate/Glycine (Calcium Carbonate 500 Mg Tab.Chew) 1,000 mg CHEWED Q4HP PRN PRN Reason: Dyspepsia Last Admin: 02/05/22 10:46 Dose: 1,000 mg Documented By: STEPHEN Hydromorphone HCl (Hydromorphone 0.5 Mg/0.5 Ml Syringe) 0.5 mg IV Q2HP PRN; Protocol PRN Reason: Per Pain Protocol Last Admin: 02/04/22 11:54 Dose: 0.5 mg Documented By: YURIDIA Co-signed By: SIOBHAN Admin: 02/04/22 07:23 Dose: 0.5 mg Documented By: YURIDIA Co-signed By: SIOBHAN Admin: 02/04/22 04:45 Dose: 0.5 mg Documented By: Admin: 02/04/22 02:10 Dose: 0.5 mg Documented By: VEDA Lactated Ringer's (Lactated Ringers) 1,000 mls @ 100 mls/hr IV .Q10H DIMITRIOS Last Admin: 02/05/22 09:13 Dose: 100 mls/hr Documented By: Infusion: 02/05/22 07:50 Dose: 100 mls/hr Documented By: Admin: 02/04/22 21:50 Dose: 100 mls/hr Documented By: Infusion: 02/04/22 21:45 Dose: 100 mls/hr Documented By: Admin: 02/04/22 11:45 Dose: 100 mls/hr Documented By: YURIDIA Co-signed By: SIOBHAN Infusion: 02/04/22 11:45 Dose: 100 mls/hr Documented By: YURIDIA Co-signed By: SIOBHAN Admin: 02/04/22 02:10 Dose: 100 mls/hr Documented By: VEDA Losartan Potassium (Losartan 50 Mg Tablet) 50 mg PO QDAY [facility] Last Admin: 02/05/22 09:12 Dose: 50 mg Documented By: RAY Melatonin (Melatonin 3 Mg Tablet) 9 mg PO HS [facility] Last Admin: 02/04/22 21:28 Dose: 9 mg Documented By: VEDA Nitrofurantoin Macrocrystals (Nitrofurantoin Sr 100 Mg Capsule) 100 mg PO BID [facility] Last Admin: 02/05/22 08:43 Dose: 100 mg Documented By: Admin: 02/04/22 21:29 Dose: 100 mg Documented By: VEDA Ondansetron HCl (Ondansetron 4 Mg/2 Ml Vial) 4 mg IV Q4HP PRN PRN Reason: Nausea And Vomiting Last Admin: 02/04/22 11:54 Dose: 4 mg Documented By: YURIDIA Co-signed By: SIOBHAN Admin: 02/04/22 07:22 Dose: 4 mg Documented By: YURIDIA Co-signed By: SIOBHAN Admin: 02/04/22 02:12 Dose: 4 mg Documented By: VEDA Pantoprazole Sodium (Pantoprazole 40 Mg Tablet) 40 mg PO ACB [facility] Last Admin: 02/05/22 07:33 Dose: 40 mg Documented By: SIOBHAN Sertraline HCl (Sertraline 50 Mg Tablet) 75 mg PO QDAY [facility] Last Admin: 02/05/22 08:44 Dose: 75 mg Documented By: RAY Spironolactone (Spironolactone 25 Mg Tablet) 25 mg PO QDAY [facility] Last Admin: 02/05/22 08:43 Dose: 25 mg Documented By: RAY Tramadol HCl (Tramadol 50 Mg Tablet) 100 mg PO Q6HP PRN; Protocol PRN Reason: Pain Last Admin: 02/05/22 05:49 Dose: 100 mg Documented By: Admin: 02/04/22 19:55 Dose: 100 mg Documented By: VEDA Shift Summary 02/04/22 17:12 Shift Summary by Juana López Primary Diagnosis: Acute Cholelithiasis Registration Status: MS OBS Date of Surgery (if applicable): 02/04/22 Pertinent Medical Dx/Issue(s): A-fib, HTN, Anxiety, Chronic pain, GERD, PUD, post right breast lumpectomy Med management (antibiotics, diuretics, BP): Spironolactone, Macrobid Skin/Wound Care: 3 visible lap sites with tegaderm dressings, scant serosanguineous drainage at incision/prosper. DISHA to right abdomen covered with split gauze and tegaderm, sanguineous drainage. Vital Signs with Trends: SBP 140's. O2, liter flow/saturations: Room air. Pain management (acute vs. chronic): Dilaudid x2, Zofran x2 - No pain since surgery. Lab/Rad (abnormals, trends): BUN: 25 Neuro/Mental Status: A&Ox4 Cardiac Rhythm, Alarm Settings: None. Urinary Elimination Device: Voids per bathroom. Urinary output greater than 30mL/hr? Yes. Date of last BM: Pt reported 02/03/22 Lines/Tubes: LR @ 100ml/hr to LAC. IV site is positional. Activity: SBA to BR. Recommendations/questions for MD: None. Discharge Plan (needs, disposition, etc): Will DC home when medically cleared. Initialized on 02/04/22 17:12 - END OF NOTE
--- NOTE | 2022-02-07 14:05 | Operative Note ---
DATE OF OPERATION: 02/04/2022 PREOPERATIVE DIAGNOSIS: Acute cholecystitis with cholelithiasis. POSTOPERATIVE DIAGNOSIS: Acute cholecystitis with cholelithiasis. PROCEDURE: Laparoscopic cholecystectomy. SURGEON: Lachelle Abdalla M.D. FINDINGS: Severe inflammation and edema of the gallbladder. DESCRIPTION OF PROCEDURE: Under general anesthesia, the patient's abdomen was prepped and draped in a sterile field. Timeout timeout procedure was carried out as per protocol. Supraumbilical midline incision was made and the Veress needle was inserted. The abdomen was insufflated with 2.5 liters of CO2. A 12 mm port was placed. Under videoscopic guidance, a 12 mm port and two 5 mm ports were placed in the right subcostal region. The patient was placed in reverse Trendelenburg position and rotated to the left. The gallbladder was tensely dilated, so it was decompressed with the Weck needle. It was then grasped and positioned. Cystic duct was dissected, clipped with five clips and divided. Cystic artery was dissected, clipped with four clips and divided. The gallbladder was then from the infrahepatic bed using electrocautery. Gallbladder was placed in an Endopouch and retrieved. Irrigation was carried out. Hemostasis was achieved with electrocautery, but there was still a significant amount of tissue edema, so a #12 Eric drain was placed and brought out through the most lateral incision. Further irrigation was carried out. The air was removed and the ports were removed. The fascia at the umbilicus was closed with interrupted 0 Vicryl. Skin incisions were closed with prosper. The drain was secured with 2-0 nylon. The patient tolerated the procedure well. She was awakened and transferred to the postanesthetic care unit in satisfactory condition. LCS:nadira Job ID: [id number] Doc ID: [id number] Lachelle Abdalla M.D.
== END 2022-02-05 11:59 | disposition home or self-care (01) ==
LOC: MEDSUR 16:41 → ED 16:41 → MEDSUR 02-04 01:35
PROVIDERS: ADMIT Family Medicine Adult Medicine; ATTEND Family Medicine Adult Medicine

== ENCOUNTER 2022-02-10 10:48 | Observation (INO) ==
--- NOTE | 2022-02-10 11:21 | Emergency Department Note ---
Abdominal Pain HPI General Chief Complaint: Abdominal Pain Stated Complaint: Stomach pain Time Seen by Provider: 02/10/22 10:49 Source: patient Mode of arrival: ambulatory Limitations: no limitations History of Present Illness HPI Narrative: Narrative: Patient presents back to the ED today with complaints of worsening abdominal pain status postcholecystectomy 3 days ago. Patient was seen here in our ED yesterday and was evaluated for the same pain. CT abdomen pelvis at that time revealed that she had seroma versus abscess formation. Dr. Abdalla who is her surgeon was consulted and he suspect that this is just a seroma patient was to follow-up in his office on Sunday. Patient states that the drain tube is leaking and she has continued pain so she went to his office today but he was in surgery today so she states she was advised to come to the ED. Patient rates her overall pain 910. She denies fever, chills, nausea, vomiting, diarrhea, constipation, and new trauma to the area. Patient denies any other alleviating or aggravating factors. Related Data Home Medications Medication Instructions Recorded Confirmed fexofenadine 180 mg tablet 180 mg PO HS 09/18/16 02/04/22 (Lisha Allergy) calcium carbonate 600 mg calcium 600 mg PO HS 01/07/19 02/04/22 (1,500 mg) tablet (Calcium) cholecalciferol (vitamin D3) 25 2,000 unit PO QDAY 01/07/19 02/04/22 mcg (1,000 unit) capsule vitamin B complex (B 1 tab PO QHS 07/15/19 02/04/22 Complex-Vitamin B12 tablet) melatonin 10 mg tablet 10 mg PO QHS 11/21/19 02/04/22 loperamide 2 mg capsule 2 mg PO QID PRN Diarrhea 05/06/20 02/04/22 (Anti-Diarrheal (loperamide)) apixaban 5 mg tablet 5 mg PO BID 11/10/21 02/04/22 budesonide 4 mg capsule,delayed 3 mg PO QDAY 11/10/21 02/04/22 release Previous Rx's Medication Instructions Recorded nystatin 100,000 unit/gram topical 1 applic topical BID PRN rash #30 11/02/20 cream grams losartan 50 mg tablet 50 mg PO QDAY #90 tabs 11/10/21 pantoprazole 40 mg tablet,delayed 40 mg PO QDAY #90 tabs 11/10/21 release sertraline 50 mg tablet (Zoloft) 75 mg PO QDAY 3 months #135 tabs 11/10/21 spironolactone 25 mg tablet 25 mg PO QDAY #90 tabs 11/10/21 atorvastatin 10 mg tablet 10 mg PO QDAY #90 tabs 11/24/21 tramadol 100 mg tablet 100 mg PO Q6H PRN pain #45 tabs 01/18/22 nitrofurantoin 100 mg PO BID #14 caps 02/01/22 monohydrate/macrocrystals 100 mg capsule (Macrobid) levofloxacin 750 mg tablet 750 mg PO DAILY abscess right 02/05/22 lower quadr #7 tabs Allergies Allergy/AdvReac Type Severity Reaction Status Date / Time mold Allergy Mild Congested Verified 02/09/22 09:39 latex AdvReac Intermediate rash Verified 02/09/22 09:39 adhesive tape AdvReac Mild Agitated Verified 02/09/22 09:39 codeine AdvReac Mild Anxiety Verified 02/09/22 09:39 hydrocodone AdvReac Mild Anxiety Verified 02/09/22 09:39 HAY FEVER Allergy Unknown UNKNOWN Uncoded 01/18/22 13:23 pain medication AdvReac Intermediate nerve Uncoded 01/18/22 13:23 ending exposed per patient and "creepy crawlies." Review of Systems ROS ROS Narrative: Narrative: All systems ED: reviewed and negative except as stated. [facility] Narrative Patient History Narrative: Narrative: Medical/Surgical/Family History All Active Problems (Updated 02/10/22 @ 13:25 by Lanre Silver DO) Abdominal pain (Acute) On anticoagulant therapy (Acute) Left rib fracture (Acute) Cholelithiasis and cholecystitis without obstruction (Acute) Abdominal pain (Acute) Shortness of breath (Acute) Cough (Acute) Rib fracture (Acute) Trochanteric bursitis of both hips (Chronic) Wrist pain (Acute) Weight gain (Acute) Rash (Acute) Yeast dermatitis (Acute) Plantar fasciitis (Acute) Atrial fibrillation (Acute) Difficulty with speech (Acute) Received intravenous tissue plasminogen activator (tPA) in emergency department (Acute) Hot flashes (Acute) Radiculopathy, lumbar region (Chronic) Radiculopathy, lumbosacral region (Chronic) Depression (Chronic) Tobacco use (Chronic) Anxiety disorder (Chronic) Hypertension (Chronic) Hypothyroidism, unspecified (Chronic) History of breast cancer (Chronic) Chronic pain (Chronic) Spondylosis without myelopathy or radiculopathy, 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) GERD (gastroesophageal reflux disease) (Chronic) Otalgia, right ear (Acute) Urinary tract infection (Acute) Insomnia (Chronic) Hypokalemia (Acute) Sleep apnea (Chronic) Chronic sinusitis (Chronic) Peptic ulcer disease (Chronic) Kidney stones (Chronic) Essential hypertension (Chronic) Bronchitis (Chronic) Malignant neoplasm of breast (Chronic) Arthritis (Chronic) Medical History Anxiety disorder Arthritis Atrial fibrillation Pt is managed by cardiology Bronchitis Chronic pain Chronic SI joint pain Chronic sinusitis Depression Essential hypertension GERD (gastroesophageal reflux disease) History of breast cancer History of radiation therapy 2010 History of tobacco use Hypertension Hypertensive urgency Hypokalemia Hypothyroidism, unspecified Insomnia Kidney stones 2007 Low back pain Malignant neoplasm of breast 2011- resolved Medicare annual wellness visit, initial Non-cardiac chest pain Peptic ulcer disease 1964 Plantar fasciitis Left foot Pleuritic chest pain Radiculopathy, lumbar region Radiculopathy, lumbosacral region Sleep apnea 2006 Spondylosis without myelopathy or radiculopathy, lumbar region Tobacco use Trochanteric bursitis of both hips Urolithiasis Surgical History H/O colonoscopy 06/18/2019 - Dr. Rutledge H/O dilation and curettage H/O excision of mass Lump removed H/O knee surgery (06/26/11) H/O nasal septoplasty (06/11/13) H/O shoulder surgery Left History of surgery SI Joint Injection, bilat w/o sed 06/19/19 RFTC Bilat L3-S1 w/sed 04/21/19 MBB #2 Bilat L3-S1 w/o sed 03/13/19 MBB #1 Bilat L2-S1 w/sed 02/17/19 History of surgery TF ELDA #3 Lt. L3-4, L4-5 w/sed 07/17/2019 Discogram L3-4, L4-5 w/sed 06/25/2019 TF ELDA #2 Lt L4-5, L5-S1 w/sed 04/21/19 LESI #1 Lt. L4-5 w/sed 03/31/2019 Hx of tonsillectomy 05/1949 Status post right breast lumpectomy (10/11/10) Status post wrist surgery Left Family History Sister Malignant neoplasm of breast Malignant neoplasm of colon Malignant neoplasm of uterus Mother Arthritis Unknown Essential hypertension Social History Smoking Status: Former smoker Alcohol Intake Frequency: does not drink Substance Use: does not use Exam Narrative Narrative: Narrative: General Limitations: no limitations General appearance: Present alert Respiratory Respiratory: Present normal lung sounds bilaterally; Absent respiratory distress Cardiovascular Cardiovascular: Present regular rate and normal rhythm Adbominal Abdominal: Present soft, tenderness, normal bowel sounds and other (Surgical site appears clean and intact. Drain tube is draining serosanguineous fluid with no obvious pus) Expanded Abdominal Abdominal Tenderness: Present diffuse Back Back: Absent CVA tenderness (R) or CVA tenderness (L) Neurological Neurological: Present alert and oriented X3 Psychiatric Psychiatric: Present normal affect and normal mood Skin Skin: Present warm (WNL) and intact Course Course Course Narrative: Patient was evaluated for abdominal pain status postcholecystectomy 1 week ago. Case was discussed with performing surgeon, Dr. Abdalla, recommends obtaining CT abdomen pelvis. CT abdomen pelvis obtained with image reviewed myself, agree with radiologist interpretation. Labs were obtained and were unremarkable. Radiologist recommend obtaining MRI of the abdomen with Eovist to rule out a bowel leak. Dr. Abdalla agreed with this. MRI of the abdomen was obtained with image of myself, agree with radiologist to rotation. Dr. Abdalla states that he will admit the patient for possible surgery. He went ahead and remove the drain tube and applied a dressing. Patient is in agreement with plan. Reevaluation(s) Reevaluation #1: Patient remains hemodynamically stable. No new complaints at this time Time: 11:52 Consultations Consultation #1: Case discussed with Dr. Abdalla, the performing surgeon, who recommends getting a CT of the abdomen and pelvis Time: 11:05 Consultation #2: Case discussed with radiologist, Dr. Garzon, who recommends getting an MRI of the abdomen Eovist to assess for bile leakage Time: 12:50 Consultation #3: Case discussed with Dr. Abdalla to evaluate the patient who states that he will admit her for observation and possible exploratory surgery. Time: 14:22 Vital Signs Vital signs: Vital Signs Temperature 97.1 F 02/10/22 11:00 Pulse Rate 90 02/10/22 11:00 Respiratory Rate 18 02/10/22 11:00 Blood Pressure 116/77 02/10/22 11:00 Pulse Oximetry (%) 96 02/10/22 11:00 Oxygen Delivery Method 02/10/22 11:00 Temperature 97.1 F 02/10/22 11:00 Pulse Rate 76 02/10/22 14:25 Respiratory Rate 18 02/10/22 11:00 Blood Pressure 118/79 02/10/22 14:25 Pulse Oximetry (%) 97 02/10/22 14:25 Oxygen Delivery Method 02/10/22 11:00 MDM MDM Narrative Medical decision making narrative: Narrative: Differential Diagnosis Differential Diagnosis: Postoperative pain, intra-abdominal infection Medical Records Medical records reviewed: Yes I reviewed the patient's medical records. Lab Data Result diagrams: 02/10/22 11:40 Labs: Lab Results 02/10/22 02/10/22 Range/Units 11:40 11:41 WBC 11.0 (4.5-11.0) K/mcL RBC 3.46 L (3.59-5.38) M/mcL Hgb 9.5 L (11.2-15.7) g/dL Hct 30.3 L (34.1-44.9) % POC Hct 30.0 L (36-48) MCV 87.6 (80.0-100.0) fL MCH 27.5 (26.0-34.0) pg MCHC 31.4 (31.0-36.0) g/dL RDW 15.3 H (11.5-14.5) % Plt Count 275 (140-440) K/mcL MPV 11.0 (8.8-12.5) fL Immature Gran % (Auto) 0.5 (0.0-0.5) % Neut % (Auto) 79.5 H (38.0-78.0) % Lymph % (Auto) 9.0 L (15.5-49.0) % Pickett % (Auto) 7.9 (1.0-12.0) % Eos % (Auto) 2.9 (0.0-7.0) % Baso % (Auto) 0.2 (0.0-2.0) % Lymph # (Auto) 0.99 L (1.50-4.80) K/mcL Pickett # (Auto) 0.87 (0.10-0.90) K/mcL Eos # (Auto) 0.32 (0.00-0.70) K/mcL Baso # (Auto) 0.02 (0.00-0.30) K/mcL Immature Gran # 0.06 H (0.00-0.05) K/mcl Absolute Neutrophils 8.77 H (1.80-8.00) K/mcL POC Sodium 133 (133-145) POC Potassium 3.3 (3.3-5.1) POC Chloride 94 L (96-108) POC Total CO2 25.0 (22-30) POC BUN 10 (6-20) POC Creatinine 0.7 (0.6-1.2) POC Glucose 93 (70-105) POC WB Ioniz Calcium 1.07 L (1.16-1.32) Radiology Data Radiology results reviewed: Yes I reviewed the patient's radiology results. Radiology results narrative: CT abdomen pelvis obtained with image reviewed myself, agree with radiologist interpretation MRI of the abdomen with Eovist, I agree with radiologist interpretation Core Measures AMI Core Measures Followed: Yes Discharge Plan Patient/Caregiver Discharge Instructions Pt seen by TRAFFIC ENGINEER/PA only: No Activity: resume usual activities as tolerated Patient Disposition: Xfer As Outpt/Obs (TS) Condition: Fair Follow up with: Katy Baird PA-C [Primary Care Provider] - Prescriptions: No Action pantoprazole 40 mg tablet,delayed release (DR/EC) 40 mg PO QDAY Qty: 90 3RF atorvastatin 10 mg tablet 10 mg PO QDAY Qty: 90 3RF nitrofurantoin monohyd/m-cryst [Macrobid] 100 mg capsule 100 mg PO BID Qty: 14 0RF Rx Instructions: must administer with a meal/food vitamin B complex [B Complex-Vitamin B12] Tablet 1 tab PO QHS fexofenadine [Lisha Allergy] 180 mg tablet 180 mg PO HS melatonin 10 mg tablet 10 mg PO QHS loperamide [Anti-Diarrheal (loperamide)] 2 mg capsule 2 mg PO QID PRN (Reason: Diarrhea) nystatin 100,000 unit/gram cream 1 applic topical BID PRN (Reason: rash) Qty: 30 0RF Rx Instructions: no more than 2 weeks on budesonide 4 mg capsule,delayed release(DR/EC) 3 mg PO QDAY losartan 50 mg tablet 50 mg PO QDAY Qty: 90 3RF spironolactone 25 mg tablet 25 mg PO QDAY Qty: 90 3RF sertraline [Zoloft] 50 mg tablet 75 mg PO QDAY 90 Days Qty: 135 3RF apixaban 5 mg tablet 5 mg PO BID Rx Instructions: Prescribed by Katy Carter. Patient is on medication assistance plan and [facility] helps patient get these mailed to house. tramadol 100 mg tablet 100 mg PO Q6H PRN (Reason: pain) Qty: 45 0RF cholecalciferol (vitamin D3) 1,000 unit capsule 2,000 unit PO QDAY calcium carbonate [Calcium 600] 600 mg calcium (1,500 mg) tablet 600 mg PO HS levofloxacin [levofloxacin] 750 mg tablet 750 mg PO DAILY Qty: 7 0RF
[2022-02-10 11:46] LABS: POC Calcium, Ionized 1.07 (1.16-1.32); POC Creatinine 0.7 (0.6-1.2); POC Potassium 3.3 (3.3-5.1)
[2022-02-10 12:23] LABS: Basophils # (Auto) 0.02 K/mcL (0.00-0.30); Basophils % (Auto) 0.2 % (0.0-2.0); Eosinophils # (Auto) 0.32 K/mcL (0.00-0.70); Eosinophils % (Auto) 2.9 % (0.0-7.0); Hematocrit 30.3 % (34.1-44.9); Hemoglobin 9.5 g/dL (11.2-15.7); Lymphocytes # (Auto) 0.99 K/mcL (1.50-4.80); Mean Cell Volume 87.6 fL (80.0-100.0); Mean Corpuscular HGB Conc 31.4 g/dL (31.0-36.0); Monocytes # (Auto) 0.87 K/mcL (0.10-0.90); Monocytes % (Auto) 7.9 % (1.0-12.0); Neutrophils % (Auto) 79.5 % (38.0-78.0); Platelet Count 275 K/mcL (140-440); RBC 3.46 M/mcL (3.59-5.38); Red Cell Distribution Width 15.3 % (11.5-14.5)
--- NOTE | 2022-02-10 12:51 | Cat Scan Report ---
CLINICAL INFORMATION: Postcholecystectomy. Abdominal pain COMPARISON: None. TECHNIQUE: 0.625 mm helical slices were obtained from the mid heart through the subtrochanteric regions. Following reconstruction, 2.5 mm sagittal, coronal and axial reformatted images were processed and reviewed at bone and soft tissue windows.The exam was performed using radiation dose optimization techniques including, but not limited to, automated exposure control, adjustment of the mA and/or kV according to patient size and use of iterative reconstruction technique. FINDINGS: Lung bases show a 7 mm well-circumscribed subpulmonic nodule in the inferior right lower lobe which is stable. The remaining lung bases are clear. Visualized heart is borderline enlarged with small pericardial effusion-new. Abdominal images show mild fatty change within the liver. 2-3 cysts in the liver ranging up to 20 mm medial segment left hepatic lobe lobe are stable. Gallbladder is now surgically absent. The fluid collection in the gallbladder fossa has increased from 6 cm to 7 cm and shows increased density. This could indicate infection or biloma from a bile leak. The intrahepatic and common bile ducts are normal for post cholecystectomy-delete common bile duct 8 mm. The pancreas, spleen, aorta, including aortic branches, are normal. Two nonobstructing stones are present inferior calyx left kidney: 5 mm and 4 mm. There is a 5 mm nonobstructing stone mid calyx right kidney. No obstructing stone or hydronephrosis. Pelvic images show slightly retroflexed uterus which is normal in size: 7 cm. A 16 mm cyst in the left ovary is stable. Right ovary is normal. Multiple sigmoid diverticula appreciated, but no evidence of diverticulitis. The remainder of the colon, small bowel and stomach show mild symmetric dilatation compatible with mild ileus. Small hiatal hernia noted. Bone windows show no focal osseous lesions. IMPRESSION: 1. Post cholecystectomy changes. 7 cm fluid collection gallbladder fossa shows a slight increase in size and density from yesterday's exam. Bile leak should be strongly considered.To exclude bile leak, suggest abdominal MRI-Eovist study. 2. Small nonobstructing stones in the kidneys stable 3. Bilateral hepatic cysts-stable 4. Sigmoid diverticulosis no evidence of diverticulitis. 5. 16 mm cyst left ovary stable. 6. Small pericardial effusion-stable Interpreted and Authenticated by: Shankar Palomo 02/10/22
[2022-02-10] MEDS ORDERED: GADOXETATE DISODIUM 2.5 MMOL/10 ML VIAL IV ONE ×2 (12:52→15:54)
[2022-02-10] MEDS ORDERED: ONDANSETRON 4 MG/2 ML VIAL IV PRN (14:32)
[2022-02-10] MEDS ORDERED: HYDROmorphone 1 MG/ML SYRINGE IV PRN (14:37)
--- NOTE | 2022-02-10 15:34 | General Surg History&Physical ---
HPI History of Present Illness Patient information: Note initiated : 02/10/22 at 3:34 pm Service Date, if different from initiated Date: [] Patient: Piedad Sánchez 82 y/o F admitted on for Stomach pain. Chief Complaint: [] Chief complaint: Postoperative abdominal pain History of present illness: Ms. Sánchez is a 82 year old F with history of acute cholecystitis who underwent laparoscopic cholecystectomy on January 08. She did well in the postoperative period and was discharged home. She developed some pain in the mid abdomen and was seen in the emergency room complaining of an incisional pain. A CT of the abdomen showed that the drain which had been placed in the subhepatic space was misplaced into the left lower quadrant. A CT also showed a fluid collection in the subhepatic space radiologist was suggested that this represent a bile leak however there was no evidence of any fluid collection except in the subhepatic space. There was no perihepatic fluid as would be expected in someone who is 6 days postop cholecystectomy. There was no bile leaking from her drain and the drain fluid was actually serous. An MRI -EOVIST study was done to look for bile leak and was negative. The patient is admitted for observation and I will check her labs in the morning and make a decision at that time as to whether or not she needs to have reexploration. Constitutional Constitutional: Present lethargy, malaise and weakness EENT Eyes: Absent change in vision Nose, mouth and throat: Absent abnormal hearing Cardiovascular Cardiovascular: Absent chest pain with activity, dyspnea, edema, palpatations or rapid heart rate Respiratory Respiratory: Absent cough, dyspnea or chest congestion Gastrointestinal Gastrointestinal: Present abdominal pain (Mid abdomen and left lower quadrant discomfort;) Musculoskeletal Musculoskeletal: Absent muscle weakness or numbness Integumentary Integumentary: Absent changing lesions or pruritus Neurological Neurological: Present other; Absent memory loss or syncope Hematologic/Lymphatic Hematologic/Lymphatic: Absent easy bleeding, easy bruising or lymphadenopathy Allergic/Immunologic Allergic/Immunologic: Absent tongue swelling, throat swelling, uticaria, wheezing or lip swelling PFSH PFSH All Active Problems (Updated 02/23/22 @ 16:18 by Lachelle Abdalla MD) Cholecystitis, acute with cholelithiasis (Acute) Abdominal pain (Acute) On anticoagulant therapy (Acute) Left rib fracture (Acute) Cholelithiasis and cholecystitis without obstruction (Acute) Abdominal pain (Acute) Shortness of breath (Acute) Cough (Acute) Rib fracture (Acute) Trochanteric bursitis of both hips (Chronic) Wrist pain (Acute) Weight gain (Acute) Rash (Acute) Yeast dermatitis (Acute) Plantar fasciitis (Acute) Atrial fibrillation (Acute) Difficulty with speech (Acute) Received intravenous tissue plasminogen activator (tPA) in emergency department (Acute) Hot flashes (Acute) Radiculopathy, lumbar region (Chronic) Radiculopathy, lumbosacral region (Chronic) Depression (Chronic) Tobacco use (Chronic) Anxiety disorder (Chronic) Hypertension (Chronic) Hypothyroidism, unspecified (Chronic) History of breast cancer (Chronic) Chronic pain (Chronic) Spondylosis without myelopathy or radiculopathy, 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) GERD (gastroesophageal reflux disease) (Chronic) Otalgia, right ear (Acute) Urinary tract infection (Acute) Insomnia (Chronic) Hypokalemia (Acute) Sleep apnea (Chronic) Chronic sinusitis (Chronic) Peptic ulcer disease (Chronic) Kidney stones (Chronic) Essential hypertension (Chronic) Bronchitis (Chronic) Malignant neoplasm of breast (Chronic) Arthritis (Chronic) Medical History (Updated 02/23/22 @ 16:18 by Lachelle Abdalla MD) Anxiety disorder Arthritis Atrial fibrillation Pt is managed by cardiology Bronchitis Chronic pain Chronic SI joint pain Chronic sinusitis Depression Essential hypertension GERD (gastroesophageal reflux disease) History of breast cancer History of radiation therapy 2010 History of tobacco use Hypertension Hypertensive urgency Hypokalemia Hypothyroidism, unspecified Insomnia Kidney stones 2007 Low back pain Malignant neoplasm of breast 2011- resolved Medicare annual wellness visit, initial Non-cardiac chest pain Peptic ulcer disease 1964 Plantar fasciitis Left foot Pleuritic chest pain Radiculopathy, lumbar region Radiculopathy, lumbosacral region Sleep apnea 2006 Spondylosis without myelopathy or radiculopathy, lumbar region Tobacco use Trochanteric bursitis of both hips Urolithiasis Surgical History (Updated 02/20/22 @ 07:43 by Demi Beasley CMA) H/O colonoscopy 06/18/2019 - Dr. Rutledge H/O dilation and curettage H/O excision of mass Lump removed H/O knee surgery (06/26/11) H/O nasal septoplasty (06/11/13) H/O shoulder surgery Left History of laparoscopic cholecystectomy 02/20/2022 History of surgery SI Joint Injection, bilat w/o sed 06/19/19 RFTC Bilat L3-S1 w/sed 04/21/19 MBB #2 Bilat L3-S1 w/o sed 03/13/19 MBB #1 Bilat L2-S1 w/sed 02/17/19 History of surgery TF ELDA #3 Lt. L3-4, L4-5 w/sed 07/17/2019 Discogram L3-4, L4-5 w/sed 06/25/2019 TF ELDA #2 Lt L4-5, L5-S1 w/sed 04/21/19 LESI #1 Lt. L4-5 w/sed 03/31/2019 Hx of tonsillectomy 05/1951 Status post right breast lumpectomy (10/11/10) Status post wrist surgery Left Family History Sister Malignant neoplasm of breast Malignant neoplasm of colon Malignant neoplasm of uterus Mother Arthritis Unknown Essential hypertension Social History marital status: smoking status: Former smoker quit date: 03/09/09 alcohol intake frequency: does not drink substance use type: does not use MEDS/ALLERGIES Home Medications and Allergies Home Medications Medication Instructions Recorded Confirmed Type fexofenadine 180 mg tablet 180 mg PO HS 09/18/16 02/20/22 History (Lisha Allergy) calcium carbonate 600 mg calcium 600 mg PO HS 01/07/19 02/20/22 History (1,500 mg) tablet (Calcium) cholecalciferol (vitamin D3) 25 2,000 unit PO QDAY 01/07/19 02/20/22 History mcg (1,000 unit) capsule vitamin B complex (B 1 tab PO QHS 07/15/19 02/20/22 History Complex-Vitamin B12 tablet) melatonin 10 mg tablet 10 mg PO QHS 11/21/19 02/20/22 History loperamide 2 mg capsule 2 mg PO QID PRN Diarrhea 05/06/20 02/20/22 History (Anti-Diarrheal (loperamide)) nystatin 100,000 unit/gram topical 1 applic topical BID PRN rash #30 11/02/20 02/20/22 Rx cream grams budesonide 4 mg capsule,delayed 3 mg PO QDAY 11/10/21 02/20/22 History release losartan 50 mg tablet 50 mg PO QDAY #90 tabs 11/10/21 02/20/22 Rx pantoprazole 40 mg tablet,delayed 40 mg PO QDAY #90 tabs 11/10/21 02/20/22 Rx release sertraline 50 mg tablet (Zoloft) 75 mg PO QDAY 3 months #135 tabs 11/10/21 02/20/22 Rx spironolactone 25 mg tablet 25 mg PO QDAY #90 tabs 11/10/21 02/20/22 Rx tramadol 100 mg tablet 100 mg PO Q6H PRN pain #45 tabs 01/18/22 02/20/22 Rx tramadol 50 mg tablet 100 mg PO Q6H PRN Pain #30 tabs 02/12/22 02/20/22 Rx Allergies Allergy/AdvReac Type Severity Reaction Status Date / Time mold Allergy Mild Congested Verified 02/20/22 10:33 latex AdvReac Intermediate rash Verified 02/20/22 10:33 adhesive tape AdvReac Mild Agitated Verified 02/20/22 10:33 codeine AdvReac Mild Anxiety Verified 02/20/22 10:33 hydrocodone AdvReac Mild Anxiety Verified 02/20/22 10:33 HAY FEVER Allergy Unknown UNKNOWN Uncoded 02/20/22 10:33 pain medication AdvReac Intermediate nerve Uncoded 02/20/22 10:33 ending exposed per patient and "creepy crawlies." Physical Examination Vital Signs Vital signs: Temp Pulse Resp BP Pulse Ox O2 Del Method 97.1 F 77 18 129/72 93 02/10/22 11:00 02/10/22 14:55 02/10/22 11:00 02/10/22 14:55 02/10/22 14:55 02/10/22 11:00 General physical appearance General physical exam: well developed, well nourished, moderate distress and moderate pain Eyes Eye exam: PERRL and normal ocular movement; negative icteric ENT ENT exam: no congestion; negative no hearing loss Head Head exam IM: Present atraumatic, normal inspection and normocephalic Neck Neck exam: no masses, no bruits, trachea midline, no lymphadenopathy and no venous distension Cardiovascular Cardiovascular exam IM: Present normal rate and rhythm, RRR, +S1 and +S2; Absent gallop or JVD Respiratory Respiratory exam: normal expansion, normal respiratory effort and clear to auscultation Abdomen Abdomen: Present soft and tender (Mild tenderness around port sites and mid abdomen; mild tenderness around drain) Integumentary Integumentary: Present no rash, no growths and no abnormal pigmentation Neurologic Neurologic: Present normal coordination and normal sensation Musculoskeletal Musculoskeletal: Present normal gait and normal posture Psychiatric Psychiatric: Present oriented to time, oriented to person, oriented to place, speech is normal and memory intact Results Labs Result diagrams: 02/11/22 05:21 02/11/22 05:21 Labs: Abnormal lab results 02/10/22 02/10/22 Range/Units 11:40 11:41 RBC 3.46 L (3.59-5.38) M/mcL Hgb 9.5 L (11.2-15.7) g/dL Hct 30.3 L (34.1-44.9) % POC Hct 30.0 L (36-48) RDW 15.3 H (11.5-14.5) % Neut % (Auto) 79.5 H (38.0-78.0) % Lymph % (Auto) 9.0 L (15.5-49.0) % Lymph # (Auto) 0.99 L (1.50-4.80) K/mcL Immature Gran # 0.06 H (0.00-0.05) K/mcl Absolute Neutrophils 8.77 H (1.80-8.00) K/mcL POC Chloride 94 L (96-108) POC WB Ioniz Calcium 1.07 L (1.16-1.32) All other labs normal. A/P Assessment and plan (1) Abdominal pain: Status: Acute (2) Cholecystitis, acute with cholelithiasis: Status: Acute Comment: 5 days postoperative (3) On anticoagulant therapy: Status: Acute Plan Patient will be monitored overnight. It is my impression that the subhepatic collection is either a seroma or hematoma. If her labs remain stable she will have her diet advanced and have her pain controlled with analgesics. She does not appear to be septic. Sepsis Sepsis Identified: No Narrative Plan of Treatment: Hold apixaban x3 more days Time Spent With Patient Time: Total time spent is greater than 50% in coordination of care (as documented) at patient's floor/unit and/or counseling patient:
--- NOTE | 2022-02-10 16:50 | Magnetic Resonance Report ---
CLINICAL HISTORY: TECHNIQUE: Axial SSFSE the patient in phase out lobular three and dynamic post Magnevist and coronal SSFSE images were acquired. FINDINGS: The post Eovist lava images show the intrahepatic common hepatic and common bile ducts are mildly opacified within 20 minutes and are normal caliber common bile duct is 6 mm. There is no extravasation from the cystic duct stump or the common hepatic duct into the caro hepatis. The liver shows mild steatosis with scattered stable cysts in the liver ranging up to 20 mm in the medial segment left hepatic lobe. 6 cm simple-appearing seroma in the caro hepatis is low signal T1 and increased signal T2. Both kidneys, adrenal glands, spleen and pancreas and aorta are normal in size, configuration and signal intensity. There is no free air, free fluid or adenopathy. The stomach and visualized small large bowel are normal. IMPRESSION: 1. No evidence of bile leak. Intrahepatic common hepatic and common bile ducts opacify normally and are normal caliber. 2. 6 cm simple seroma in the caro hepatis. No evidence of hemorrhage or bile. 3. Mild hepatic steatosis with scattered hepatic cysts-stable. Interpreted and Authenticated by: Shankar Palomo 02/10/22
[2022-02-10] MEDS: 0.9 % SODIUM CHLORIDE 1,000 ML IV SCH (17:56)
[2022-02-10] MEDS: LEVOFLOXACIN 500 MG/100 ML BAG IV SCH (20:44)
[2022-02-10] MEDS: 0.9 % SODIUM CHLORIDE 10 ML SYRINGE IV SCH (20:48)
[2022-02-10] MEDS: DOCUSATE SODIUM 100 MG CAPSULE PO SCH (20:48)
[2022-02-10] MEDS ORDERED: fentaNYL 100 MCG/2 ML VIAL IV PRN (21:05)
[2022-02-10] MEDS: traMADol 50 MG TABLET PO PRN (21:37)
[2022-02-10] MEDS ORDERED: traMADol 50 MG TABLET PO ONE (21:47)
[2022-02-11] MEDS: 0.9 % SODIUM CHLORIDE 10 ML SYRINGE IV SCH ×3 (04:49→20:19)
[2022-02-11 06:45] LABS: Basophils # (Auto) 0.02 K/mcL (0.00-0.30); Basophils % (Auto) 0.2 % (0.0-2.0); Eosinophils # (Auto) 0.36 K/mcL (0.00-0.70); Eosinophils % (Auto) 3.4 % (0.0-7.0); Hemoglobin 9.1 g/dL (11.2-15.7); Lymphocytes # (Auto) 1.13 K/mcL (1.50-4.80); Lymphocytes % (Auto) 10.5 % (15.5-49.0); Mean Cell Volume 87.2 fL (80.0-100.0); Mean Corpuscular HGB Conc 32.5 g/dL (31.0-36.0); Mean Platelet Volume 10.7 fL (8.8-12.5); Monocytes # (Auto) 0.91 K/mcL (0.10-0.90); Monocytes % (Auto) 8.5 % (1.0-12.0); Platelet Count 262 K/mcL (140-440); RBC 3.21 M/mcL (3.59-5.38); Red Cell Distribution Width 15.3 % (11.5-14.5); WBC 10.7 K/mcL (4.5-11.0)
[2022-02-11] MEDS: 0.9 % SODIUM CHLORIDE 1,000 ML IV SCH ×4 (06:59→17:18)
[2022-02-11 07:16] LABS: ALT/SGPT 10 U/L (<40); AST/SGOT 12 U/L (<32); Albumin 2.6 gm/dL (3.2-5.2); Albumin/Globulin Ratio 0.9 (1.0-2.3); Alkaline Phosphatase 77 U/L (39-117); Bilirubin,Direct < 0.2 mg/dL (0-0.3); Bilirubin,Total 0.4 mg/dL (0.1-1.0); Blood Urea Nitrogen 6 mg/dL (8-23); Carbon Dioxide 27 mmol/L (22-30); Chloride 94 mmol/L (96-108); Globulin 2.9 gm/dL (2.2-3.7); Glomerular Filtration Rate 86; Glucose 91 mg/dL (70-105); Lactate Dehydrogenase 165 U/L (135-225); Phosphorous 2.7 mg/dL (2.5-4.5); Triglycerides 96 mg/dL (<150); Uric Acid 2.7 mg/dL (2.5-8.0)
[2022-02-11] MEDS: PANTOPRAZOLE 40 MG TABLET PO SCH (08:07)
[2022-02-11] MEDS: DOCUSATE SODIUM 100 MG CAPSULE PO SCH ×2 (08:08→20:19)
--- NOTE | 2022-02-11 14:06 | General Surgery Progress Note ---
SUBJECTIVE Subjective Patient information: Note initiated : 02/11/22 at 2:03 pm Service Date, if different from initiated Date: [] Patient: Piedad Sánchez 82 y/o F admitted on 02/10/22 for Stomach pain. Chief Complaint: [] Principal diagnosis: Diffuse abdominal pain; subhepatic fluid collection Interval history: Patient feels much better. She has been afebrile. Drainage near her Eric drain is much clear with no evidence of infection. Incisions are unremarkable Constitutional Vitals: Vital Signs Temp Pulse Resp BP Pulse Ox O2 Del Method 98 F 78 14 137/69 98 02/11/22 12:00 02/11/22 12:00 02/11/22 12:00 02/11/22 12:00 02/11/22 12:00 02/11/22 12:00 Period Temp Pulse Resp BP Sys/Lyles Pulse Ox O2 Del Method O2 Flow Rate Last 24 Hr 97.6 F-98.1 F 72-89 14-20 109-146/56-80 92-100 Room Air-Room Air Intake and Output 02/11/22 02/11/22 02/11/22 05:59 13:59 21:59 Intake Total 400 1540 Output Total 1015 1335 Balance -615 205 Intake & Output: Intake & Output 02/11/22 02/11/22 02/11/22 05:59 13:59 21:59 Intake Total 400 1540 Output Total 1015 1335 Balance -615 205 Intake: IV 100 1000 Sodium Chloride 0.9% 1,000 ml @ 1000 75 mls/hr IV .[id number] [facility] Rx#: [id number] Oral 300 540 Output: Drainage 65 Right Abdomen 65 Drainage 60 Right Abdomen 60 Void Amount 950 1275 Other: Meal Breakfast Percent of Meal Consumed 75% Feeding Ability Independent Urine Appearance Clear Clear Urine Color Yellow Yellow Urine Odor Normal Stool Size Moderate Stool Color Brown Stool Consistency Soft Liquid # Bowel Movements 1 ENT ENT exam: Present mucous membranes moist, normal external ear exam and normal oropharynx Neck Neck exam: Present full ROM and normal inspection; Absent tenderness Respiratory Respiratory exam: Present normal respiratory exam and CTAB Cardiovascular Cardiovascular exam: Present normal rate and rhythm, RRR, +S1 and +S2; Absent JVD GI/Abdominal GI/Abdominal exam: Present normal bowel sounds and distended (Mild distention) Additional comments: Eric drain with serous fluid Extremities Exam Extremities exam: Present normal inspection and neurovascular intact Neurological Exam Neurological exam: Present normal gait and oriented X3; Absent motor sensory deficit Psychiatric Psychiatric exam: Present normal affect and normal mood A/P Assessment and plan (1) Abdominal pain: Status: Acute (2) On anticoagulant therapy: Status: Acute (3) Cholelithiasis and cholecystitis without obstruction: Status: Acute Plan Continue Levaquin IV Saline lock IV Regular diet as tolerated Time Spent With Patient Time: Total time spent is greater than 50% in coordination of care (as documented) at patient's floor/unit and/or counseling patient:
[2022-02-11] MEDS: LEVOFLOXACIN 500 MG/100 ML BAG IV SCH (14:11)
[2022-02-11] MEDS: traMADol 50 MG TABLET PO PRN ×2 (14:22→20:16)
[2022-02-12] MEDS: 0.9 % SODIUM CHLORIDE 1,000 ML IV SCH ×2 (00:44→07:14)
[2022-02-12] MEDS: traMADol 50 MG TABLET PO PRN (02:41)
[2022-02-12] MEDS: 0.9 % SODIUM CHLORIDE 10 ML SYRINGE IV SCH ×2 (06:31→13:43)
[2022-02-12] MEDS: PANTOPRAZOLE 40 MG TABLET PO SCH (07:18)
[2022-02-12] MEDS: DOCUSATE SODIUM 100 MG CAPSULE PO SCH (08:40)
--- NOTE | 2022-02-12 14:18 | Discharge Summary ---
Discharge Provider Provider IMPORTANT FOLLOW-UP INFORMATION FOR PCP: Patient information: Note initiated : 02/12/22 at 2:16 pm Service Date, if different from initiated Date: [] Patient: Piedad Sánchez 82 y/o F admitted on 02/10/22 for Stomach pain. Chief Complaint: [] Date of admission: 02/10/22 15:53 Discharge date: 02/12/22 Primary care physician: Katy Baird PA-C Admitting clinician: Lachelle Abdalla Attending physician on admission: Lachelle Abdalla Consults: 02/10/22 Consult to Physician [CONS] Stat Comment: Consulting Provider: Lachelle Abdalla Reason For Exam: Physician to Consult Consult to Physician [CONS] Stat Comment: post op pain Consulting Provider: Lachelle Abdalla Reason For Exam: Physician to Consult Attending physician on discharge: Lachelle Abdalla Discharging clinician: Lachelle Abdalla COURSE Hospital Course Hospital course: 82-year-old female who is 5 days status post laparoscopic cholecystectomy. She did well in the early operative period but developed pain in the mid abdomen and left lower quadrant in the postoperative period. She had a CT of the abdomen with contrast which showed a developing fluid containing lesion subhepatic space. The drain which had been placed intraoperatively was displaced into the left lower quadrant. The patient had slight decrease in hemoglobin and white count of 12,000. The fluid in the drain was turbid. The patient was afebrile. She was started on Levaquin and advised to return to the hospital if her symptoms worsen. She returned to the ER complaining of more severe pain but the pain this time was in the left lower quadrant. The radiologist question whether or not she had a bile leak and recommended an EOVIST MRI to rule out BILE LEAK. The MR study was negative for bile leak. It was felt that she was a subhepatic hematoma because she had started her Eliquis as soon as she returned from. It was felt that she should be admitted and be observed if she should worsen. Because of the turbidity of the fluid IN her drain she was started on antibiotics. Over the past 48 hours she has remained afebrile and her pain has decreased. Her white blood count is 10.7. Her hemoglobin has dropped to 9.1 appears to have stabilized. Cultures on the fluid showed no growth and the fluid is now totally serous. Patient is stable and will be discharged on oral analgesics and she is to complete her Levaquin antibiotics that were given at the time of her vaginal discharge. Discharge diagnosis: Recurrent postoperative abdominal pain; post bleeding due to Eliquis Secondary discharge diagnosis: Status post laparoscopic cholecystectomy Postprocedural drain dislodgment Reason for admission: Recurrent abdominal pain nonresponsive to outpatient therapy Procedures: None Pertinent studies/significant findings: MRI-EOVIST examination CT of abdomen without contrast Time Spent with Patient Time attestation: Total time spent providing and/or coordinating discharge services: Time spent: Less than 30 minutes Physical Examination Vital Signs Vital signs: Temp Pulse Resp BP Pulse Ox O2 Del Method 97.3 F 71 14 119/72 96 02/12/22 14:01 02/12/22 14:01 02/12/22 14:01 02/12/22 14:01 02/12/22 14:01 02/12/22 14:01 Eyes Eye exam: PERRL and normal ocular movement; negative icteric ENT ENT exam: normal mucosa and no congestion Head Head exam IM: Present atraumatic, normal inspection and normocephalic Neck Neck exam: no masses, no bruits, trachea midline and no lymphadenopathy Cardiovascular Cardiovascular exam IM: Present normal rate and rhythm, JVD, RRR, +S1 and +S2 Respiratory Respiratory exam: normal expansion, normal respiratory effort and clear to auscultation Abdomen Abdomen: Present soft, non tender, bowel sounds (Normal bowel sounds) and surgical scars (Port sites look unremarkable) Integumentary Integumentary: Present no rash, no growths and no abnormal pigmentation Neurologic Neurologic: Present normal coordination and normal sensation Musculoskeletal Musculoskeletal: Present normal gait and normal posture Psychiatric Psychiatric: Present oriented to time, oriented to person, oriented to place, speech is normal and memory intact Discharge Plan Patient/Caregiver Discharge Instructions Activity: resume usual activities as tolerated Diet: Regular Diet Prescriptions: New tramadol 50 mg tablet 100 mg PO Q6H PRN (Reason: Pain) Qty: 30 0RF Discontinued apixaban 5 mg tablet 5 mg PO BID Rx Instructions: Prescribed by Katy Carter. Patient is on medication assistance plan and [facility] helps patient get these mailed to house. No Action pantoprazole 40 mg tablet,delayed release (DR/EC) 40 mg PO QDAY Qty: 90 3RF nitrofurantoin monohyd/m-cryst [Macrobid] 100 mg capsule 100 mg PO BID Qty: 14 0RF Rx Instructions: must administer with a meal/food vitamin B complex [B Complex-Vitamin B12] Tablet 1 tab PO QHS fexofenadine [Lisha Allergy] 180 mg tablet 180 mg PO HS melatonin 10 mg tablet 10 mg PO QHS loperamide [Anti-Diarrheal (loperamide)] 2 mg capsule 2 mg PO QID PRN (Reason: Diarrhea) nystatin 100,000 unit/gram cream 1 applic topical BID PRN (Reason: rash) Qty: 30 0RF Rx Instructions: no more than 2 weeks on budesonide 4 mg capsule,delayed release(DR/EC) 3 mg PO QDAY Rx Instructions: pt takes 3 tabs of medication losartan 50 mg tablet 50 mg PO QDAY Qty: 90 3RF spironolactone 25 mg tablet 25 mg PO QDAY Qty: 90 3RF sertraline [Zoloft] 50 mg tablet 75 mg PO QDAY 90 Days Qty: 135 3RF tramadol 100 mg tablet 100 mg PO Q6H PRN (Reason: pain) Qty: 45 0RF cholecalciferol (vitamin D3) 1,000 unit capsule 2,000 unit PO QDAY calcium carbonate [Calcium 600] 600 mg calcium (1,500 mg) tablet 600 mg PO HS levofloxacin [levofloxacin] 750 mg tablet 750 mg PO DAILY Qty: 7 0RF Prescription drug monitoring program results: PDMP not reviewed Follow Up Plan Follow up with: Katy Baird PA-C [Primary Care Provider] - Lachelle Abdalla MD [Physician] - (Call for appointment in 1week Canceled the appointment scheduled for tomorrow) Patient Disposition: Home, Self-Care Plan of Treatment: Hold apixaban x3 more days Prognosis: Good Rehab Potential: Good I certify that the patient requires SNF services: No Overall status at discharge: patient is progressing back to baseline Discharge Orders: Discharge Order (Routine); Ordered 02/12/22 Ordered By: Lachelle Abdalla Pending Pending Pending: Resuscitation Status Resuscitate (Full Code) Diet Regular Diet Start Sat Feb 11 1738 Docusate Sodium (Docusate Sodium 100 Mg Capsule) 100 mg PO BID [facility] Last Admin: 02/12/22 08:40 Dose: Not Given Documented By: Admin: 02/11/22 20:19 Dose: Not Given Documented By: LUIS ANGEL Admin: 02/11/22 08:08 Dose: 100 mg Documented By: Admin: 02/10/22 20:48 Dose: Not Given Documented By: SHYAM Sodium Chloride (Sodium Chloride 0.9%) 1,000 mls @ 75 mls/hr IV .[id number] [facility] Last Infusion: 02/12/22 13:23 Dose: 0 mls/hr Documented By: YURIDIA Co-signed By: SHERIE Admin: 02/12/22 07:14 Dose: Not Given Documented By: Admin: 02/12/22 00:44 Dose: 75 mls/hr Documented By: LUIS ANGEL Infusion: 02/11/22 22:39 Dose: 75 mls/hr Documented By: LUIS ANGEL Admin: 02/11/22 17:18 Dose: Not Given Documented By: Admin: 02/11/22 09:19 Dose: 75 mls/hr Documented By: Infusion: 02/11/22 09:19 Dose: 0 mls/hr Documented By: Admin: 02/11/22 07:03 Dose: Not Given Documented By: Admin: 02/10/22 17:56 Dose: 75 mls/hr Documented By: SIOBHAN Levofloxacin (Levaquin) 500 mg in 100 mls @ 100 mls/hr IV Q24H [facility]; Protocol Last Infusion: 02/11/22 15:24 Dose: 0 mls/hr Documented By: Admin: 02/11/22 14:11 Dose: 100 mls/hr Documented By: Infusion: 02/10/22 22:52 Dose: 0 mls/hr Documented By: Admin: 02/10/22 20:44 Dose: 100 mls/hr Documented By: SHYAM Pantoprazole Sodium (Pantoprazole 40 Mg Tablet) 40 mg PO QAMAC [facility] Last Admin: 02/12/22 07:18 Dose: 40 mg Documented By: YURIDIA Co-signed By: SHERIE Admin: 02/11/22 08:07 Dose: 40 mg Documented By: BLAKE Sodium Chloride (0.9 % Sodium Chloride 10 Ml Syringe) 10 ml IV Q8 [facility] Last Admin: 02/12/22 13:43 Dose: 10 ml Documented By: YURIDIA Co-signed By: SHERIE Admin: 02/12/22 06:31 Dose: Not Given Documented By: Admin: 02/11/22 20:19 Dose: Not Given Documented By: LUIS ANGEL Admin: 02/11/22 14:11 Dose: Not Given Documented By: Admin: 02/11/22 04:49 Dose: Not Given Documented By: Admin: 02/10/22 20:48 Dose: Not Given Documented By: SHYAM Tramadol HCl (Tramadol 50 Mg Tablet) 100 mg PO Q6HP PRN; Protocol PRN Reason: Pain Last Admin: 02/12/22 02:41 Dose: 100 mg Documented By: LUIS ANGEL Admin: 02/11/22 20:16 Dose: 100 mg Documented By: LUIS ANGEL Admin: 02/11/22 14:22 Dose: 100 mg Documented By: Admin: 02/10/22 21:37 Dose: 100 mg Documented By: SHYAM Shift Summary 02/12/22 03:14 Shift Summary by Chelsea Aviles Primary Diagnosis: Abdominal pain. S/P Lap Choley 02/04/22 Registration Status: Med Surg observation Date of Surgery (if applicable): Pertinent Medical Dx/Issue(s): HTN, A-Fib, anxiety, depression, GERD, R Breast Ca, CVA Med management (antibiotics, diuretics, BP): levoquin Skin/Wound Care: lap sites, prosper intact, DISHA drain with serous drainage Vital Signs with Trends: VSS, NO BP'S R ARM O2, liter flow/saturations: RA Pain management (acute vs. chronic): prefers tramadol to the IV prn pain meds Lab/Rad (abnormals, trends): Neuro/Mental Status: A&O X4 Cardiac Rhythm, Alarm Settings: Urinary Elimination Device: BSC Urinary output greater than 30mL/hr? yes Date of last BM: 02/11/22 Lines/Tubes: 22G LAC. NS 75/hr Activity: up with SBA assist in room/falcon way, independent to BSC Recommendations/questions for MD: Discharge Plan (needs, disposition, etc): TBD Initialized on 02/12/22 03:14 - END OF NOTE
== END 2022-02-12 16:15 | disposition home or self-care (01) ==
LOC: ED 10:48 → MEDSUR 10:48
PROVIDERS: ADMIT Family Medicine Adult Medicine; ATTEND Family Medicine Adult Medicine